=== PATIENT | male | born 1980 | race Caucasian/White ===

== ENCOUNTER 2018-04-06 07:48 | Outpatient (CLI) | payer MEDICARE ==
[2018-04-06] MEDS: methylPREDNISolone 1,000 MG, VIAL MATE ADAPTER 1 EACH in D5W 250 ML IV (08:14)
== END 2018-04-06 09:45 | disposition home or self-care (01) ==
LOC: M INFU 07:48
DX: G35 Multiple sclerosis (principal); Z88.8 Allergy status to other drugs, medicaments and biological substances
CPT/HCPCS: J2930

== ENCOUNTER 2018-04-07 07:43 | Outpatient (CLI) | payer MEDICARE ==
[2018-04-07] MEDS: methylPREDNISolone 1,000 MG, VIAL MATE ADAPTER 1 EACH in NS 250 ML IV (07:48)
== END 2018-04-07 09:15 | disposition home or self-care (01) ==
LOC: M INFU 07:43
DX: G35 Multiple sclerosis (principal); Z79.01 Long term (current) use of anticoagulants; Z79.899 Other long term (current) drug therapy; Z88.8 Allergy status to other drugs, medicaments and biological substances
CPT/HCPCS: J2930

== ENCOUNTER 2018-04-08 07:46 | Outpatient (CLI) | payer MEDICARE ==
[2018-04-08] MEDS: methylPREDNISolone 1,000 MG, VIAL MATE ADAPTER 1 EACH in NS 250 ML IV (08:48)
== END 2018-04-08 09:50 | disposition home or self-care (01) ==
LOC: M INFU 07:46
DX: G35 Multiple sclerosis (principal); Z79.899 Other long term (current) drug therapy; Z88.8 Allergy status to other drugs, medicaments and biological substances
CPT/HCPCS: J2930

== ENCOUNTER 2018-04-22 20:59 | Inpatient (IN) | payer MEDICARE ==
[~2018-04-22] VITALS: Ht 167.6 cm; Wt 110.0 kg
[~2018-04-22 20:59] MED LIST: /PANT40TA OR; /WARF5TA OR; ACET65TA OR; ASPI325T PO; BETASERON; COUM2TAB22 PO; EPIT200T PO; MILKSUS OR; MULT1CHW21 PO; MULTIVIT PO; NICORETTE PO; PERC5TAB8 OR; TEGR200T OR; VITA500C10 PO; ZONI100C2 PO
[2018-04-22 22:25] LABS: BASO % 0.1 % (0.0-1.0); EOS # 0.1 10^3/uL (0.0-0.50); EOS % 0.3 % (0.0-3.0); HEMATOCRIT 16.8 % (42.0-52.0); LYMPH # 1.2 10^3/uL (1.5-4.5); LYMPH % 6.8 % (24.0-44.0); MEAN CORPUSCULAR HEMOGLOBIN 18.5 pg (27.0-33.0); MEAN CORPUSCULAR HGB CONC 26.8 g/dl (32.0-36.5); MEAN CORPUSCULAR VOLUME 69.1 fl (80.0-96.0); MONO # 0.8 10^3/uL (0.0-0.8); MONO % 4.9 % (0.0-5.0); NEUTROPHILS # 14.6 10^3/uL (1.8-7.7); PLATELET COUNT, AUTOMATED 543 10^3/uL (150-450); RED BLOOD COUNT 2.43 10^6/uL (4.30-6.10); WHITE BLOOD COUNT 16.8 10^3/uL (4.0-10.0)
[2018-04-22 22:27] LABS: HEMOGLOBIN 4.5 g/dl (13.5-17.5)
[2018-04-22 22:51] LABS: INR 3.27; PARTIAL THROMBOPLASTIN TIME 41.1 SECONDS (25.4-37.6); PROTHROMBIN TIME 34.1 SECONDS (12.1-14.4)
[2018-04-22 22:59] LABS: ALBUMIN 2.8 GM/DL (3.2-5.2); ALT/SGPT 22 U/L (12-78); BILIRUBIN,DIRECT < 0.1 MG/DL (0.0-0.2); BILIRUBIN,TOTAL 0.2 MG/DL (0.2-1.0); BLOOD UREA NITROGEN 16 MG/DL (7-18); CALCIUM LEVEL 8.5 MG/DL (8.5-10.1); CARBON DIOXIDE LEVEL 27 MEQ/L (21-32); CHLORIDE LEVEL 111 MEQ/L (98-107); CREATININE FOR GFR 0.97 MG/DL (0.70-1.30); GLOMERULAR FILTRATION RATE > 60.0 (>60); GLUCOSE, FASTING 96 MG/DL (70-100); POTASSIUM SERUM 3.4 MEQ/L (3.5-5.1); SODIUM LEVEL 144 MEQ/L (136-145)
--- NOTE | 2018-04-22 23:22 | REPVR ---
EXAM: CT Abdomen and Pelvis Without Intravenous Contrast EXAM DATE/TIME: 04/22/2018 10:02 PM CLINICAL HISTORY: 38 years old, male; Pain and signs and symptoms; Other: Hematuria; Abdominal pain; Localized; Other: Groin pain; Additional info: Groin pain, hematuria, likely stone TECHNIQUE: Axial computed tomography images of the abdomen and pelvis without intravenous contrast. All CT scans at this facility use at least one of these dose optimization techniques: automated exposure control; mA and/or kV adjustment per patient size (includes targeted exams where dose is matched to clinical indication); or iterative reconstruction. Coronal and sagittal reformatted images were created and reviewed. COMPARISON: CR Pelvis, complete 03/25/2014 9:39 AM FINDINGS: Lower thorax: Calcified granulomas in the left lung. ABDOMEN: Liver: Normal. No mass. Gallbladder and bile ducts: Gallstones. Pancreas: Mild atrophy of the pancreas. Spleen: Normal. No splenomegaly. Adrenals: Normal. No mass. Kidneys and ureters: Multiple bilateral renal stones right larger than left; staghorn stone on the right measuring roughly up to 22 mm. On the left largest one is measuring up to 8 mm. No hydroureteronephrosis. Stomach and bowel: Few scattered colonic diverticula without any CT evidence of diverticulitis. Appendix: Normal appendix. PELVIS: Bladder: Unremarkable as visualized. Reproductive: Unremarkable as visualized. ABDOMEN and PELVIS: Intraperitoneal space: Normal. No free air. No significant fluid collection. Bones/joints: Degenerative changes of the spine. Soft tissues: Small fat-containing left inguinal hernia. Vasculature: Normal. No abdominal aortic aneurysm. Lymph nodes: Normal. No enlarged lymph nodes. 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 IMPRESSION: Multiple gallstones. Multiple bilateral renal stones right larger than left; staghorn stone on the right measuring roughly up to 22 mm. On the left largest one is measuring up to 8 mm. No hydroureteronephrosis. Electronically signed by: Janelle Hill On 04/22/2018 23:21:40 PM
[2018-04-22] MEDS ORDERED: WARF4TAB52 PO (23:31)
[2018-04-22] MEDS ORDERED: WARF-60 PO (23:31)
[2018-04-22] MEDS ORDERED: VITA500C10 PO (23:31)
[2018-04-22] MEDS ORDERED: ZONI100C2 PO (23:31)
[2018-04-23] MEDS ORDERED: GI COCKTAIL 50ML BTL(HYOSCYAMINE/MAALOX/LIDOCAINE VISCOUS)(1:3:1) PO ONE (00:45)
[2018-04-23] MEDS ORDERED: WARFARIN SOD 3 MG TAB PO SCH (02:43)
[2018-04-23] MEDS ORDERED: ACETAMINOPHEN TAB 650MG DOSE (2X325MG) PO PRN (02:45)
[2018-04-23] MEDS ORDERED: NICOTINE 14 MG/24 HR TRANSDERMAL TD ONE (02:45)
--- NOTE | 2018-04-23 02:59 | HPEPDOC ---
General Date of Admission Chief Complaint The patient is a 38-year-old male admitted with a reason for visit of Groin Pain. Source: Patient Exam Limitations: No limitations History of Present Illness 38-year-old male presents with groin pain and inability to urinate. Patient has a past medical history of nephrolithiasis, MS, seizure disorder, DVT of the left leg on Coumadin. Patient states he was treated for UTI with Cipro orally, which she completed yesterday. The patient states that today around 2:30 PM he felt immense pressure in his groin. He is been unable to urinate. Tried to go to the bathroom but was unable to. Upon arrival to ED, he was able to urinate 3 times and his pain was relieved. Subsequently, he was found to have a hemoglobin of 4.5. The patient denies symptoms of shortness of breath, but has noticed blood in his urine sporadically while on his treatment with Coumadin. He also states that he has been having black stool for the past 2 years. He complains of constipation and uses the bathroom once every 3 days. He states since his DVT. His legs have been swollen. He can ambulate with a walker but normally uses a scooter. He denies fevers, chills, shortness of breath, abdominal pain, nausea, vomiting, burning on urination. The patient is a smoker of 24 years about one pack per day Home Medications Scheduled Ascorbic Acid (Vitamin C 500 mg) 1 Chw Chw, 1,000 MG PO DAILY, (Reported) Warfarin Sod (Warfarin Sodium) 1 Mg Tab, 2 MG PO QPM, (Reported) TAKES WITH 6MG FOR 8MG TOTAL; TAKES AT 1800 Warfarin Sod (Warfarin Sodium) 6 Mg Tab, 6 MG PO QPM, (Reported) TAKES WITH 2MG FOR 8MG TOTAL; TAKES AT 1800 Zonisamide (Zonisamide) 100 Mg Cap, 100 MG PO QPM, (Reported) TAKES AT 1800 Allergies Coded Allergies: Phenytoin (Verified Allergy, Unknown, 11/10/14) Social History * Smoker: current smoker Review of Systems Constitutional: Denies: Chills, Fever, Night Sweats Eyes: Denies: Pain, Vision change ENT: Denies: Head Aches, Ear Pain, Dysphagia Skin: Reports: Jaundice; Denies: Rash, Lesions, Itching, Breakdown Pulmonary: Denies: Dyspnea, Cough Cardiovascular: Denies: Chest Pain, Palpitations, Orthopnea, Paroxysmal Noc. Dyspnea, Lt Headedness Gastrointestinal: Reports: Constipation, Melena; Denies: Nausea, Vomiting, Abdominal Pain, Diarrhea, Hematochezia Genitourinary: Reports: Hematuria, Retention; Denies: Dysuria, Frequency, Incontinence Hematologic: Denies: Bruising, Bleeding Excessively, Petecchia, Purpura Musculoskeletal: Denies: Neck Pain, Back Pain, Joint Pain, Muscle Pain, Spasms Neurological: Denies: Weakness, Numbness, Change in speech, Confusion, Seizures Psych: Reports: Mood Normal; Denies: Depression, Memory Issues Physical Examination General Exam: Positive: Alert, Cooperative, No Acute Distress Eye Exam: Positive: PERRLA, Conjunctiva & lids normal, EOMI; Negative: Sclera icteric ENT Exam: Positive: Atraumatic, Mucous membr. moist/pink, Pharynx Normal Neck Exam: Positive: Supple; Negative: JVD, thyromegaly Chest Exam: Positive: Clear to auscultation, Normal air movement, Wheezing; Negative: Rales, Rhonchi Heart Exam: Positive: Rate Normal, Regular Rhythm, Normal S1, Normal S2; Negative: Murmurs, Rubs Abdomen Exam: Positive: Normal bowel sounds, Soft; Negative: Tenderness, Hepatospenomegaly Extremity Exam: Positive: Edema, Normal pulses; Negative: Clubbing, Cyanosis, Tenderness Skin Exam: Positive: Nl turgor and temperature; Negative: Breakdown, Lesion Neuro Exam: Positive: Normal Speech, Cranial Nerves 3-12 NL, Reflexes 2+ Psych Exam: Positive: Mental status NL, Mood NL, Oriented x 3 Vital Signs Vital Signs Date Time Temp Pulse Resp B/P (MAP) Pulse Ox O2 Delivery O2 Flow Rate FiO2 04/23/18 01:33 97.4 101 18 135/80 (98) 99 Room Air Laboratory Data Labs 24H Laboratory Tests 2 04/22/18 21:12: Urine Color YELLOW, Urine Appearance HAZY, Urine pH 7.0, Urine Specific [place] 1.009, Urine Protein NEGATIVE, Urine Glucose (UA) NEGATIVE, Urine Ketones NEGATIVE, Urine Blood 2+H, Urine Nitrite NEGATIVE, Urine Bilirubin NEGATIVE, Urine Urobilinogen 0.2, Urine Leukocyte Esterase TRACEH, Urine WBC (Auto) 10H, Urine RBC (Auto) 94H, Urine Hyaline Casts (Auto) 0, Urine Bacteria (Auto) 1+H, Urine Squamous Epithelial Cells 0, Urine Mucus (Auto) SMALL, Urine Sperm (Auto) 04/22/18 21:51: Differential Slide Review Report, Peripheral Blood Smear Path Consult PERIPHERAL SMEAR, Prothrombin Time 34.1H, Prothromb Time International Ratio 3.27, Activated Partial Thromboplast Time 41.1H 04/22/18 22:19: Immature Granulocyte % (Auto) 0.9, White Blood Count 16.8H, Red Blood Count 2.43L, Hemoglobin 4.5*L, Hematocrit 16.8L, Mean Corpuscular Volume 69.1L, Mean Corpuscular Hemoglobin 18.5L, Mean Corpuscular Hemoglobin Concent 26.8L, Red Cell Distribution Width 25.8H, Platelet Count 543H, Neutrophils (%) (Auto) 87.0H, Lymphocytes (%) (Auto) 6.8L, Monocytes (%) (Auto) 4.9, Eosinophils (%) (Auto) 0.3, Basophils (%) (Auto) 0.1, Neutrophils # (Auto) 14.6H, Lymphocytes # (Auto) 1.2L, Monocytes # (Auto) 0.8, Eosinophils # (Auto) 0.1, Basophils # (Auto) 0.0, Nucleated Red Blood Cells % (auto) 0.4H, Anion Gap 6L, Glomerular Filtration Rate > 60.0, Calcium Level 8.5, Aspartate Amino Transf (AST/SGOT) 9, Alanine Aminotransferase (ALT/SGPT) 22, Alkaline Phosphatase 56, Total Bilirubin 0.2, Direct Bilirubin < 0.1, Total Protein 6.0L, Albumin 2.8L, Albumin/Globulin Ratio 0.88L CBC/BMP Laboratory Tests 04/22/18 22:19 Red Blood Count 2.43 L, Mean Corpuscular Volume 69.1 L, Mean Corpuscular Hemoglobin 18.5 L, Mean Corpuscular Hemoglobin Concent 26.8 L, Red Cell Distribution Width 25.8 H, Neutrophils (%) (Auto) 87.0 H, Lymphocytes (%) (Auto) 6.8 L, Monocytes (%) (Auto) 4.9, Eosinophils (%) (Auto) 0.3, Basophils (%) (Auto) 0.1, Neutrophils # (Auto) 14.6 H, Lymphocytes # (Auto) 1.2 L, Monocytes # (Auto) 0.8, Eosinophils # (Auto) 0.1, Basophils # (Auto) 0.0 Microbiology Microbiology 04/22/18 Urine Culture, Received Pending Assessment/Plan 38-year-old male presents with groin pain and inability to urinate. Found to have severe anemia staghorn calculi and bilateral kidneys. Patient has a past medical history of nephrolithiasis, MS, seizure disorder, DVT of the left leg on Coumadin. Severe anemia Patient transfused 2 units of PRBC in the ED Check CBC in the morning Patient is on Coumadin for recent DVT of the left leg in December Mild hematuria on UA Although patient was treated with Cipro prior to admission. His UA is Positive for bacteria and leukocyte esterase, and he has tachycardia, and leukocytosis of 16- meeting criteria for sepsis We'll start ceftriaxone Will continue Coumadin tomorrow night, pending evaluation by urology and GI Consider evaluation for IVC filter Stool for occult blood Anemia less likely hemolysis bilirubin is not elevated. Follow-up peripheral blood smear Patient is a smoker. Nicotine patch ordered counseling done Physical therapy evaluation. Gait stability and strengthening Fall precautions Plan / VTE VTE Prophylaxis Ordered?: No VTE Exclusion Mechanical Proph: Bello Lower Ex DVT IFEOMA GRUBER MD Apr 23, 2018 02:54
[2018-04-23] MEDS ORDERED: cefTRIAXone SOD 1 GM in D5W MINI-BAG PLUS 50 ML IV SCH (03:00)
[2018-04-23 04:00] VITALS: BP 134/80
[2018-04-23] MEDS: ZONISAMIDE 100 MG CAP (ZONEGRAN) PO SCH ×2 (05:53→18:10)
[2018-04-23 07:02] LABS: HEMATOCRIT 19.5 % (42.0-52.0); MEAN CORPUSCULAR HGB CONC 29.7 g/dl (32.0-36.5); MEAN CORPUSCULAR VOLUME 73.9 fl (80.0-96.0); PLATELET COUNT, AUTOMATED 445 10^3/uL (150-450); RED BLOOD COUNT 2.64 10^6/uL (4.30-6.10); WHITE BLOOD COUNT 9.7 10^3/uL (4.0-10.0)
[2018-04-23 07:24] LABS: HEMOGLOBIN 5.8 g/dl (13.5-17.5)
[2018-04-23 07:26] LABS: BLOOD UREA NITROGEN 17 MG/DL (7-18); CALCIUM LEVEL 7.7 MG/DL (8.5-10.1); CARBON DIOXIDE LEVEL 25 MEQ/L (21-32); CHLORIDE LEVEL 113 MEQ/L (98-107); CREATININE FOR GFR 0.95 MG/DL (0.70-1.30); GLOMERULAR FILTRATION RATE > 60.0 (>60); GLUCOSE, FASTING 79 MG/DL (70-100); POTASSIUM SERUM 3.5 MEQ/L (3.5-5.1); SODIUM LEVEL 144 MEQ/L (136-145)
[2018-04-23] MEDS ORDERED: POTASSIUM CHLORIDE 10 MEQ SR TABLET PO ONE (07:45)
[2018-04-23] MEDS: PANTOPRAZOLE 40MG INJ (PROTONIX) (C9113) IV SCH ×2 (07:52→20:47)
[2018-04-23 08:16] LABS: PERCENT SATURATION 3.6 % (19.7-50.0)
[2018-04-23 09:00] VITALS: BP 127/61
[2018-04-23] MEDS ORDERED: ASCORBIC ACID 500 MG TAB PO SCH (09:00)
[2018-04-23] MEDS ORDERED: SENOKOT S TAB PO SCH (09:00)
--- NOTE | 2018-04-23 09:02 | REP ---
Duplex extremity venous ultrasound: Bilateral lower extremity. History: History of recent DVT below the knee on the left. Earlier this year. Patient on blood thinners with edema. Question DVT. Findings: Image quality is inhibited some degree by patient body habitus. The deep veins are anechoic and fully compressible from the groin to the popliteal fossa in the left and right lower extremity. Color flow imaging is homogeneous. Spectral Doppler interrogation demonstrates intact respiratory variation in flow and normal manual augmentation of flow. There is no evidence of deep vein thrombosis. Impression: Negative bilateral lower extremity duplex venous ultrasound. No evidence of deep vein thrombosis. Electronically Signed by Brandon Andres MD 04/23/2018 08:53 A
[2018-04-23 11:49] LABS: FOLATE 6.5 NG/ML (>5.4)
--- NOTE | 2018-04-23 11:55 | IPNPDOC ---
Subjective Date Seen The patient was seen on 04/23/18. Subjective Chief Complaint/HPI 38 yo male with PMH of MS, unspecified bone neoplasm, hematuria, nephrolithiasis s/p shock wave and unspecified percutaneous procedure, seizure d/o, and DVT in December 2017 on Coumadin at home presents at the hospital d/t inability to void in addition to groin pain. Events since last encounter Patient is laying on the bed comfortably. Denies any chest pain, SOB, dizziness, lightheadedness, nausea, or vomiting, or dysuria. He said that he has occasional leakage of urine along with urinary urgency and frequency. Patient states that he has good bowel movement control; denies diarrhea or hematochezia. Patient states that he has been having black stool since he is about 8 years old. Denies family hx of anemia, and no family history of blood disorder was reported. 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 Patient states that his hematuria has improved, but it is looks pink; denies any obvious blood streaks in urine. Blood consent was obtained in ER before his blood transfusion in ER, currently there is no blood consent form in chart. Duplex lower extremity US was neg for DVT. General: Denies: Chills Constitutional: Denies: Chills, Fever ENT: Denies: Head Aches Skin: Denies: Bruising Pulmonary: Reports: Cough (baseline); Denies: Dyspnea, Pleuritic Chest Pain Cardiovascular: Denies: Chest Pain, Palpitations, Lt Headedness Genitourinary: Reports: Frequency, Incontinence (urine leakage, may happen without sneezing/coughing), Other Symptoms (urgency); Denies: Dysuria, Retention Hematologic: Denies: Bruising, Bleeding Excessively Neurological: Reports: Weakness, Incoordination (baseline from MS); Denies: Numbness, Change in speech Objective Physical Examination General Exam: Positive: Alert, Cooperative, No Acute Distress Eye Exam: Positive: PERRLA, Conjunctiva & lids normal, EOMI; Negative: Sclera icteric ENT Exam: Positive: Atraumatic, Mucous membr. moist/pink, Pharynx Normal Neck Exam: Positive: Supple; Negative: JVD, thyromegaly Chest Exam: Positive: Clear to auscultation, Normal air movement, Wheezing; Negative: Rales, Rhonchi Heart Exam: Positive: Rate Normal, Regular Rhythm, Normal S1, Normal S2; Negative: Murmurs, Rubs Abdomen Exam: Positive: Normal bowel sounds, Soft; Negative: Tenderness, Hepatospenomegaly Extremity Exam: Positive: Edema, Normal pulses; Negative: Clubbing, Cyanosis, Tenderness Skin Exam: Positive: Nl turgor and temperature; Negative: Breakdown, Lesion Neuro Exam: Positive: Normal Speech, Cranial Nerves 3-12 NL, Reflexes 2+ Psych Exam: Positive: Mental status NL, Mood NL, Oriented x 3 Assessment /Plan Assessment 1. Isolated severe Anemia 2/2 iron deficiency anemia vs hematuria -microcytic anemia with high RDW; low iron and low ferritin -vitals stable roughly stable since admission. S/p 2 units PRBC in ED. 2 more units ordered for today. Transfusion consent form re-obtained today -Neg stool occult blood -F/u with CBC in AM and H&H in PM. Tele monitor. -home meds Coumadin for recent DVT in 12/2017 was held. INR>3. F/u with PT/INR. 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 Treated with Cipro as outpatient prior to admission. PMH of multiple UTI and nephrolithiasis -urology consulted and determines no intervention from urology at this time. If creatinine increases may contact urology again -Surgery consulted, planned upper endoscopy and colonoscopy. Will repeat stool occult blood test again -On PO ferrous sulfate 2. Sepsis 2/2 to UTI, resolved -initially presented with leukocytosis, tachycardia, and source of infection. Leukocytosis resolved. -Pos for urinary urgency and frequency. Mild hematuria -On IV Ceftriaxone. UA pos for UTI. Urine Cx pending. May change antibiotics based on urine cx result. -Continue to f/u with vitals and CBC 3. Recent DVT -Wafarin d/c as patient's severely anemic with hematuria -Dr. Esteves consulted. IVC filter placement. 4. Urinary retention, resolved -patient has been able to urinate since admission -urology following -On Flomax 5. Urinary leakage, likely 2/2 multiple sclerosis vs UTI -Continue to monitor -urology following -Recommend f/u outpatient 6. Multiple sclerosis -Patient has imbalance and requires walker/power chair at baseline -PT/OT ordered -Fall precaution. OOB to chair w/ assist. Activity per PT/OT 7. Hx of seizure -Continue home med Zonisamide -seizure precaution ordered DVT prophylaxis. TEDS. planned IVC filter placement Diet. Clear liquid diet. Plan/VTE VTE Prophylaxis Ordered?: Yes (TEDS) VTE Exclusion Mechanical Proph: Bello Lower Ex DVT VS, I&O, 24H, Fishbone Vital Signs/I&O Vital Signs Date Time Temp Pulse Resp B/P (MAP) Pulse Ox O2 Delivery O2 Flow Rate FiO2 04/23/18 09:00 98.7 102 18 127/61 (83) 97 Room Air I&O- Last 24 Hours up to 6 AM 04/23/18 05:59 Intake Total 450 ml Balance 450 ml Laboratory Data 24H LABS Laboratory Tests 2 04/22/18 21:12: Urine Color YELLOW, Urine Appearance HAZY, Urine pH 7.0, Urine Specific [place] 1.009, Urine Protein NEGATIVE, Urine Glucose (UA) NEGATIVE, Urine Ketones NEGATIVE, Urine Blood 2+H, Urine Nitrite NEGATIVE, Urine Bilirubin NEGATIVE, Urine Urobilinogen 0.2, Urine Leukocyte Esterase TRACEH, Urine WBC (Auto) 10H, Urine RBC (Auto) 94H, Urine Hyaline Casts (Auto) 0, Urine Bacteria (Auto) 1+H, Urine Squamous Epithelial Cells 0, Urine Mucus (Auto) SMALL, Urine Sperm (Auto) 04/22/18 21:51: Differential Slide Review Report, Peripheral Blood Smear Path Consult PERIPHERAL SMEAR, Prothrombin Time 34.1H, Prothromb Time International Ratio 3.27, Activated Partial Thromboplast Time 41.1H 04/22/18 22:19: Immature Granulocyte % (Auto) 0.9, White Blood Count 16.8H, Red Blood Count 2.43L, Hemoglobin 4.5*L, Hematocrit 16.8L, Mean Corpuscular Volume 69.1L, Mean Corpuscular Hemoglobin 18.5L, Mean Corpuscular Hemoglobin Concent 26.8L, Red Cell Distribution Width 25.8H, Platelet Count 543H, Neutrophils (%) (Auto) 87.0H, Lymphocytes (%) (Auto) 6.8L, Monocytes (%) (Auto) 4.9, Eosinophils (%) (Auto) 0.3, Basophils (%) (Auto) 0.1, Neutrophils # (Auto) 14.6H, Lymphocytes # (Auto) 1.2L, Monocytes # (Auto) 0.8, Eosinophils # (Auto) 0.1, Basophils # (Auto) 0.0, Nucleated Red Blood Cells % (auto) 0.4H, Anion Gap 6L, Glomerular Filtration Rate > 60.0, Calcium Level 8.5, Aspartate Amino Transf (AST/SGOT) 9, Alanine Aminotransferase (ALT/SGPT) 22, Alkaline Phosphatase 56, Total Bilirubin 0.2, Direct Bilirubin < 0.1, Total Protein 6.0L, Albumin 2.8L, Albumin/Globulin Ratio 0.88L 04/23/18 06:38: Reticulocyte # (auto) 59.5, Percent Reticulocyte Count 2.3H, Reticulocyte Hemoglobin Equivalent 15.3L 04/23/18 06:43: Nucleated Red Blood Cells % (auto) 0.8H, Anion Gap 6L, Glomerular Filtration Rate > 60.0, Blood Urea Nitrogen 17, Creatinine 0.95, Sodium Level 144, Potassium Level 3.5, Chloride Level 113H, Carbon Dioxide Level 25, Calcium Level 7.7L 04/23/18 07:26: Iron Level 14L, Total Iron Binding Capacity 386, Transferrin % Saturation 3.6L, Ferritin 3L CBC/BMP Laboratory Tests 04/22/18 22:19 Red Blood Count 2.43 L, Mean Corpuscular Volume 69.1 L, Mean Corpuscular Hemoglobin 18.5 L, Mean Corpuscular Hemoglobin Concent 26.8 L, Red Cell Distribution Width 25.8 H, Neutrophils (%) (Auto) 87.0 H, Lymphocytes (%) (Auto) 6.8 L, Monocytes (%) (Auto) 4.9, Eosinophils (%) (Auto) 0.3, Basophils (%) (Auto) 0.1, Neutrophils # (Auto) 14.6 H, Lymphocytes # (Auto) 1.2 L, Monocytes # (Auto) 0.8, Eosinophils # (Auto) 0.1, Basophils # (Auto) 0.0 04/23/18 06:43 Red Blood Count 2.64 L, Mean Corpuscular Volume 73.9 L, Mean Corpuscular Hem oglobin 22.0 L, Mean Corpuscular Hemoglobin Concent 29.7 L, Red Cell Distribution Width 27.0 H, Calcium Level 7.7 L Microbiology Microbiology 04/23/18 Stool Occult Blood (AKOSUA) - Final, Complete 04/22/18 Urine Culture, Received Pending GME ATTESTATION GME ATTESTATION My faculty preceptor for this patient encounter was physically present during the encounter and was fully available. All aspects of the patient interview, examination, medical decision making process, and medical care plan development were reviewed and approved by the faculty preceptor. The faculty preceptor is aware and concurs with the plan as stated in the body of this note and will attest to such by his/her cosignature. ATTENDING NOTE I have both independently examined this patient as well as reviewed the note I have discussed in detail the findings and plan of treatment as documented in the note. I will continue to follow the patient and offer further guidance to the patients care as necessary during this hospital stay. CATE García MD, DO Apr 23, 2018 11:55 CORNELL MARIN MD Apr 24, 2018 10:59
[2018-04-23] MEDS ORDERED: ISOVUE-300 61% 50ML VIAL (Q9967) As Ordered ONE (12:52)
[2018-04-23] MEDS ORDERED: LIDOCAINE 2% MDV 20 ML VIAL As Ordered ONE (12:52)
[2018-04-23 15:16] LABS: HEMATOCRIT 24.2 % (42.0-52.0); HEMOGLOBIN 7.2 g/dl (13.5-17.5)
[2018-04-23] MEDS: ASCORBIC ACID 500 MG TAB PO SCH ×2 (15:35→20:49)
[2018-04-23] MEDS: FERROUS SULFATE 325MG TAB PO SCH ×2 (15:36→20:49)
[2018-04-23 16:00] VITALS: BP 130/78
[2018-04-23 20:00] VITALS: BP 131/71
[2018-04-23] MEDS: SENOKOT S TAB PO SCH (20:49)
[2018-04-23] MEDS: TAMSULOSIN 0.4 MG CAP PO SCH (20:49)
[2018-04-24] VITALS (7 sets, daily range): BP systolic 120–150; BP diastolic 63–91
[2018-04-24] MEDS: cefTRIAXone SOD 2 GM in D5W MINI-BAG PLUS 50 ML IV SCH (03:37)
[2018-04-24 05:40] LABS: HEMATOCRIT 28.3 % (42.0-52.0); HEMOGLOBIN 8.8 g/dl (13.5-17.5); MEAN CORPUSCULAR HEMOGLOBIN 23.7 pg (27.0-33.0); MEAN CORPUSCULAR HGB CONC 31.1 g/dl (32.0-36.5); MEAN CORPUSCULAR VOLUME 76.1 fl (80.0-96.0); PLATELET COUNT, AUTOMATED 448 10^3/uL (150-450); RED BLOOD COUNT 3.72 10^6/uL (4.30-6.10); WHITE BLOOD COUNT 10.2 10^3/uL (4.0-10.0)
[2018-04-24 05:55] LABS: INR 1.98; PROTHROMBIN TIME 22.9 SECONDS (12.1-14.4)
[2018-04-24 05:59] LABS: BLOOD UREA NITROGEN 10 MG/DL (7-18); CALCIUM LEVEL 8.6 MG/DL (8.5-10.1); CARBON DIOXIDE LEVEL 24 MEQ/L (21-32); CHLORIDE LEVEL 111 MEQ/L (98-107); CREATININE FOR GFR 0.83 MG/DL (0.70-1.30); GLOMERULAR FILTRATION RATE > 60.0 (>60); GLUCOSE, FASTING 79 MG/DL (70-100); POTASSIUM SERUM 3.6 MEQ/L (3.5-5.1); SODIUM LEVEL 142 MEQ/L (136-145)
[2018-04-24] MEDS ORDERED: GOLYTELY SOLN 4000 ML BTL PO ONE (06:00)
[2018-04-24] MEDS ORDERED: POTASSIUM CHLORIDE 10 MEQ SR TABLET PO ONE (08:00)
[2018-04-24] MEDS: PANTOPRAZOLE 40MG INJ (PROTONIX) (C9113) IV SCH ×2 (08:48→20:46)
[2018-04-24] MEDS: ASCORBIC ACID 500 MG TAB PO SCH ×3 (08:48→20:46)
[2018-04-24] MEDS: FERROUS SULFATE 325MG TAB PO SCH ×3 (08:48→20:46)
[2018-04-24] MEDS: SENOKOT S TAB PO SCH ×2 (08:48→20:46)
--- NOTE | 2018-04-24 10:56 | IPNPDOC ---
Subjective Date Seen The patient was seen on 04/24/18. Subjective Chief Complaint/HPI 38 yo male with PMH of MS, unspecified bone neoplasm, hematuria, nephrolithiasis s/p shock wave and unspecified percutaneous procedure, seizure d/o, and DVT in December 2017 on Coumadin at home presents at the hospital d/t inability to void in addition to groin pain. Events since last encounter Patient was on the commode at the time of the examination. 2 nurses were in the exam room at the time of the examination. Patient states that he is feelign well. It was reported that his urine color has cleared up. Patient denies any dizziness, lightheadedness, chest pain, palpitation, or SOB. He is s/p IVC filter placement. Patient was minimally hypokalemia, and K 40 meq was repleted. General: Denies: Chills Constitutional: Denies: Chills, Fever Pulmonary: Denies: Dyspnea, Pleuritic Chest Pain Cardiovascular: Denies: Chest Pain, Palpitations, Lt Headedness Gastrointestinal: Denies: Nausea, Vomiting, Abdominal Pain Genitourinary: Denies: Hematuria Neurological: Reports: Weakness (lower extremity weakness), Other Symptoms (imbalance); Denies: Numbness Objective Physical Examination General Exam: Positive: Alert, Cooperative, No Acute Distress Eye Exam: Positive: PERRLA, Conjunctiva & lids normal; Negative: Sclera icteric ENT Exam: Positive: Atraumatic, Mucous membr. moist/pink Neck Exam: Positive: Supple; Negative: JVD, thyromegaly Chest Exam: Positive: Clear to auscultation, Normal air movement; Negative: Rales, Rhonchi, Wheezing Heart Exam: Positive: Rate Normal, Regular Rhythm, Normal S1, Normal S2; Negative: Murmurs, Rubs Abdomen Exam: Positive: Normal bowel sounds, Soft; Negative: Tenderness, Hepatospenomegaly Extremity Exam: Positive: Normal pulses; Negative: Clubbing, Cyanosis Skin Exam: Positive: Nl turgor and temperature; Negative: Breakdown, Lesion Neuro Exam: Positive: Normal Speech, Sensation Intact, Reflexes 2+; Negative: Strength at 5/5 X4 ext (+2 in left lower extremity. +4 in right lower extremity. +5 in bilateral upper extremities.) Psych Exam: Positive: Mental status NL, Mood NL, Oriented x 3 Assessment /Plan Assessment 1. Isolated severe Anemia 2/2 iron deficiency anemia, 2/2 hematuria from nephrolithiasis VS GI loss; improving -microcytic anemia with high RDW; low iron and low ferritin -vitals stable roughly stable since admission. S/p 4 units PRBC transfusion. Transfusion consent form re-obtained 04/23 -First stool occult blood neg. Repeat stool occult blood test positive. -F/u with CBC in AM and H&H in PM. Tele monitor. May switch to CBC in the AM only starting 04/23 if H&H roughly stable. -home meds Coumadin for recent DVT was d/c. s/p IVC filter placement. 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 PMH of multiple UTI and nephrolithiasis. Gross hematuria resolved. -urology consulted and determines no intervention from urology at this time. If creatinine increases may contact urology again -Surgery consulted, planned upper endoscopy and colonoscopy. NPO 8hrs before scope. -On PO ferrous sulfate 2. Sepsis 2/2 to questionable UTI, improving -initially presented with leukocytosis, tachycardia, and source of infection. Currently without tachycardia -Pos for urinary urgency and frequency. Mild hematuria present in UA. Gross hematuria resolved. -On IV Ceftriaxone. Treated with Cipro as outpatient prior to admission. UA pos for UTI. Urine Cx no growth. -Continue to f/u with vitals and CBC 3. Recent DVT -Wafarin d/c as patient's severely anemic with hematuria -Dr. Esteves consulted. IVC filter placement and TEDS. D/C Warfarin as pos for hematuria and scheduled endoscopes. 4. Urinary retention, resolved -patient has been able to urinate since admission -urology following -On Flomax 5. Urinary leakage, likely 2/2 multiple sclerosis vs UTI -Continue to monitor -urology following -Recommend f/u outpatient 6. Multiple sclerosis -Patient has imbalance and requires walker/power chair at baseline -PT/OT ordered -Fall precaution. OOB to chair w/ assist. Activity per PT/OT 7. Hx of seizure -Continue home med Zonisamide -seizure precaution ordered DVT prophylaxis. TEDS. planned IVC filter placement Diet. Clear liquid diet. NPO start 04/24/18 dinner for procedure Plan/VTE VTE Prophylaxis Ordered?: Yes (IVC filter placed) VTE Exclusion Mechanical Proph: Other (prior DVT. IVC filter) VS, I&O, 24H, Fishbone Vital Signs/I&O Vital Signs Date Time Temp Pulse Resp B/P (MAP) Pulse Ox O2 Delivery O2 Flow Rate FiO2 04/24/18 08:00 96.0 80 18 141/91 (108) 96 Room Air I&O- Last 24 Hours up to 6 AM 04/24/18 06:00 Intake Total 1507 ml Output Total 3400 ml Balance -1893 ml Laboratory Data 24H LABS Laboratory Tests 2 04/24/18 05:16: Nucleated Red Blood Cells % (auto) 0.3H, Prothrombin Time 22.9H, Prothromb Time International Ratio 1.98, Anion Gap 7L, Glomerular Filtration Rate > 60.0, Blood Urea Nitrogen 10, Creatinine 0.83, Sodium Level 142, Potassium Level 3.6, Chloride Level 111H, Carbon Dioxide Level 24, Calcium Level 8.6 CBC/BMP Laboratory Tests 04/23/18 14:52 04/24/18 05:16 Red Blood Count 3.72 L, Mean Corpuscular Volume 76.1 L, Mean Corpuscular Hemoglobin 23.7 L, Mean Corpuscular Hemoglobin Concent 31.1 L, Red Cell Distribution Width 24.8 H, Calcium Level 8.6 Microbiology Microbiology 04/23/18 Stool Occult Blood (AKOSUA) - Final, Complete 04/22/18 Urine Culture - Final, Complete GME ATTESTATION GME ATTESTATION My faculty preceptor for this patient encounter was physically present during the encounter and was fully available. All aspects of the patient interview, examination, medical decision making process, and medical care plan development were reviewed and approved by the faculty preceptor. The faculty preceptor is aware and concurs with the plan as stated in the body of this note and will attest to such by his/her cosignature. ATTENDING NOTE I have both independently examined this patient as well as reviewed the note I have discussed in detail the findings and plan of treatment as documented in the note. I will continue to follow the patient and offer further guidance to the patients care as necessary during this hospital stay. CATE García MD, DO Apr 24, 2018 10:56 CORNELL MARIN MD Apr 25, 2018 12:09
--- NOTE | 2018-04-24 11:08 | IPNPDOC ---
Text Note Date of Service The patient was seen on 04/24/18. NOTE No acute events overnight. He denies any abd pains, nausea, emesis, or bowel movements. He is already started on his bowel prep, and the plan is for EGD and colonoscopy tomorrow AM. VSSAF NAD abd - soft, nt, nd A) 38y/o male with MS, and anemia likely due to GI bleed vs. nephrolithiasis, or both nephrolithiasis P) clq diet bowel prep today NPO after midnight OR for EGD and colonoscopy in am Jonnathan Diaz DO VS,Fishbone, I+O VS, Fishbone, I+O Laboratory Tests 04/23/18 14:52 04/24/18 05:16 Red Blood Count 3.72 L, Mean Corpuscular Volume 76.1 L, Mean Corpuscular Hemoglobin 23.7 L, Mean Corpuscular Hemoglobin Concent 31.1 L, Red Cell Distribution Width 24.8 H, Calcium Level 8.6 Vital Signs Date Time Temp Pulse Resp B/P (MAP) Pulse Ox O2 Delivery O2 Flow Rate FiO2 04/24/18 08:00 96.0 80 18 141/91 (108) 96 Room Air I&O- Last 24 Hours up to 6 AM 04/24/18 05:59 Intake Total 1447 ml Output Total 3050 ml Balance -1603 ml BANDAR DIAZ DO Apr 24, 2018 11:08
[2018-04-24] MEDS: ZONISAMIDE 100 MG CAP (ZONEGRAN) PO SCH (17:06)
--- NOTE | 2018-04-24 18:46 | CR.PDOC ---
General Date of Consultation: Apr 23, 2018 Referring Provider: CORNELL MARIN MD Primary Care Physician: CORNELL MARIN MD Attending Physician: CORNELL MARIN MD Consultation REASON FOR CONSULTATION/CHIEF COMPLAINT: staghorn calculus; bilateral renal stones. HISTORY OF PRESENT ILLNESS: 38yo male present to ER with his second episode of acute on chronic severe anemia. He has . ALLERGIES: Please see below. HOME MEDICATIONS: Please see below. PAST MEDICAL HISTORY: 1. Multiple sclerosis . 2. Recurrent staghorn calculi bilaterally, renal PAST SURGICAL HISTORY: 1. Right femur fracture repair 2. Several, renal surgeries for renal calculi. FAMILY HISTORY: BROTHER HEALTHY SOCIAL HISTORY: relevant social factors: Before his diagnosis of MS friends thought that he was walking drunk all the time. LIVES WITH REVIEW OF SYSTEMS: CONSTITUTIONAL: Friendly, cooperative . HEENT: No erythema, no exudate. CARDIOVASCULAR: Anemia, acute on chronic. RESPIRATORY: No COPD no asthma. GENITOURINARY: Bilateral renal calculi/staghorn . MUSCULOSKELETAL: Poorly ambulatory, right lower extremity injury and repair. GASTROINTESTINAL:, Black tarry stool. SKIN: Right lower extremity scar, problems with his hair or nails. NEUROLOGICAL: NONE. PSYCHIATRIC: Affect normal . ENDOCRINE: Obese . HEMATOLOGIC/LYMPHATIC: Bleeding dyscrasia . ALLERGIC/IMMUNOLOGIC: None . PHYSICAL EXAMINATION: VPHYSICAL EXAMINATION: VITAL SIGNS: Please see below. GENERAL: COOPERATIVE, SITTING IN CHAIR HEENT: NO EXUDATE NO ERYTHEMA CARDIOVASCULAR: RRR, NO CYANOSIS. RESPIRATORY: GOOD EXCURSION NO WHEEZES NO STRIDOR. ABDOMINAL: SOFT NON TENDER NON DISTENDED EXTREMITIES: OLD SCAR DOWN THE RIGHT LATERAL NEUROLOGICAL: ALERT AND ORIENT X3 PSYCHOLOGICAL: MOOD AND AFFECT NORMAL LABORATORY DATA: Please see below. ASSESSMENT/PLAN: 1. STAGHORN CALCULI. 2. KIDNEY STONE 3. NORMAL WBC 4. NORMAL CR 5. BEING W/U FOR SEVERE ANEMIA FU WITH DR. KEBEDE AN OUTPATIENT TO MANAGE STONES PT IS NOT SEPTIC AND DENIES GROSS HEMATURIA-STATES URINE IS YELLOW THROUGH OUT THE LAST [address] KEBEDE/UROLOGY. Vital Signs/I&O Vital Signs Date Time Temp Pulse Resp B/P (MAP) Pulse Ox O2 Delivery O2 Flow Rate FiO2 04/23/18 09:00 98.7 102 18 127/61 (83) 97 Room Air I&O- Last 24 Hours up to 6 AM 04/23/18 06:00 Intake Total 450 ml Balance 450 ml Laboratory Data Labs 24H Laboratory Tests 2 04/22/18 21:12: Urine Color YELLOW, Urine Appearance HAZY, Urine pH 7.0, Urine Specific [place] 1.009, Urine Protein NEGATIVE, Urine Glucose (UA) NEGATIVE, Urine Ketones NEGATIVE, Urine Blood 2+H, Urine Nitrite NEGATIVE, Urine Bilirubin NEGATIVE, Urine Urobilinogen 0.2, Urine Leukocyte Esterase TRACEH, Urine WBC (Auto) 10H, Urine RBC (Auto) 94H, Urine Hyaline Casts (Auto) 0, Urine Bacteria (Auto) 1+H, Urine Squamous Epithelial Cells 0, Urine Mucus (Auto) SMALL, Urine Sperm (Auto) 04/22/18 21:51: Differential Slide Review Report, Peripheral Blood Smear Path Consult PERIPHERAL SMEAR, Prothrombin Time 34.1H, Prothromb Time International Ratio 3.27, Activated Partial Thromboplast Time 41.1H 04/22/18 22:19: Immature Granulocyte % (Auto) 0.9, White Blood Count 16.8H, Red Blood Count 2.43L, Hemoglobin 4.5*L, Hematocrit 16.8L, Mean Corpuscular Volume 69.1L, Mean Corpuscular Hemoglobin 18.5L, Mean Corpuscular Hemoglobin Concent 26.8L, Red Cell Distribution Width 25.8H, Platelet Count 543H, Neutrophils (%) (Auto) 87.0H, Lymphocytes (%) (Auto) 6.8L, Monocytes (%) (Auto) 4.9, Eosinophils (%) (Auto) 0.3, Basophils (%) (Auto) 0.1, Neutrophils # (Auto) 14.6H, Lymphocytes # (Auto) 1.2L, Monocytes # (Auto) 0.8, Eosinophils # (Auto) 0.1, Basophils # (Auto) 0.0, Nucleated Red Blood Cells % (auto) 0.4H, Anion Gap 6L, Glomerular Filtration Rate > 60.0, Calcium Level 8.5, Aspartate Amino Transf (AST/SGOT) 9, Alanine Aminotransferase (ALT/SGPT) 22, Alkaline Phosphatase 56, Total Bilirubin 0.2, Direct Bilirubin < 0.1, Total Protein 6.0L, Albumin 2.8L, Albumin/Globulin Ratio 0.88L 04/23/18 06:38: Reticulocyte # (auto) 59.5, Percent Reticulocyte Count 2.3H, Reticulocyte Hemoglobin Equivalent 15.3L 04/23/18 06:43: Nucleated Red Blood Cells % (auto) 0.8H, Anion Gap 6L, Glomerular Filtration Rate > 60.0, Blood Urea Nitrogen 17, Creatinine 0.95, Sodium Level 144, Potassium Level 3.5, Chloride Level 113H, Carbon Dioxide Level 25, Calcium Level 7.7L 04/23/18 07:26: Iron Level 14L, Total Iron Binding Capacity 386, Transferrin % Saturation 3.6L, Ferritin 3L, Vitamin B12 Level 210L, Folate 6.5 CBC/BMP Laboratory Tests 04/22/18 22:19 Red Blood Count 2.43 L, Mean Corpuscular Volume 69.1 L, Mean Corpuscular Hemoglobin 18.5 L, Mean Corpuscular Hemoglobin Concent 26.8 L, Red Cell Distribution Width 25.8 H, Neutrophils (%) (Auto) 87.0 H, Lymphocytes (%) (Auto) 6.8 L, Monocytes (%) (Auto) 4.9, Eosinophils (%) (Auto) 0.3, Basophils (%) (Auto) 0.1, Neutrophils # (Auto) 14.6 H, Lymphocytes # (Auto) 1.2 L, Monocytes # (Auto) 0.8, Eosinophils # (Auto) 0.1, Basophils # (Auto) 0.0 04/23/18 06:43 Red Blood Count 2.64 L, Mean Corpuscular Volume 73.9 L, Mean Corpuscular Hemoglobin 22.0 L, Mean Corpuscular Hemoglobin Concent 29.7 L, Red Cell Distribution Width 27.0 H, Calcium Level 7.7 L Microbiology Microbiology 04/23/18 Stool Occult Blood (AKOSUA) - Final, Complete 04/22/18 Urine Culture - Final, Complete Allergies Coded Allergies: Phenytoin (Verified Allergy, Unknown, 11/10/14) Home Medications Scheduled Ascorbic Acid (Vitamin C 500 mg) 1 Chw Chw, 1,000 MG PO DAILY, (Reported) Warfarin Sod (Warfarin Sodium) 1 Mg Tab, 2 MG PO QPM, (Reported) TAKES WITH 6MG FOR 8MG TOTAL; TAKES AT 1800 Warfarin Sod (Warfarin Sodium) 6 Mg Tab, 6 MG PO QPM, (Reported) TAKES WITH 2MG FOR 8MG TOTAL; TAKES AT 1800 Zonisamide (Zonisamide) 100 Mg Cap, 100 MG PO QPM, (Reported) TAKES AT 1800 Shun Griffin MD Apr 23, 2018 14:36
--- NOTE | 2018-04-24 18:48 | IPNPDOC ---
Date Seen The patient was seen on 04/24/18. Progress Note SUBJECTIVE: Patient is a 38Y WHITE MALE WITH OTHER COMORBIDITIES AND REASON FOR ADMISSION; UROLOGY CONSULTED FOR STAGHORN CALCULI AND OTHER KIDNEY SMALLER KIDNEY STONES BILATERALLY. PT HAS A NORMAL CREATININE AND NORMAL WBC, BUT IS ADMITTED FOR SEVERE ANEMIA THAT IS GETTING A WORK UP CURRENTLY. OBJECTIVE PHYSICAL EXAMINATION: VITAL SIGNS: Please see below. GENERAL: COOPERATIVE, SITTING IN CHAIR HEENT: NO EXUDATE NO ERYTHEMA CARDIOVASCULAR: RRR, NO CYANOSIS. RESPIRATORY: GOOD EXCURSION NO WHEEZES NO STRIDOR. ABDOMINAL: SOFT NON TENDER NON DISTENDED EXTREMITIES: OLD SCAR DOWN THE RIGHT LATERAL NEUROLOGICAL: PSYCHOLOGICAL: LABORATORY DATA, IMAGING STUDIES, MICROBIOLOGY: Please see below. PHYSICAL EXAMINATION: VITAL SIGNS: Please see below. GENERAL: COOPERATIVE, SITTING IN CHAIR HEENT: NO EXUDATE NO ERYTHEMA CARDIOVASCULAR: RRR, NO CYANOSIS. RESPIRATORY: GOOD EXCURSION NO WHEEZES NO STRIDOR. ABDOMINAL: SOFT NON TENDER NON DISTENDED EXTREMITIES: OLD SCAR DOWN THE RIGHT LATERAL NEUROLOGICAL: ALERT AND ORIENT X3 PSYCHOLOGICAL: MOOD AND AFFECT NORMAL LABORATORY DATA: Please see below. ASSESSMENT/PLAN: 1. STAGHORN CALCULI. 2. KIDNEY STONE 3. NORMAL WBC 4. NORMAL CR 5. BEING W/U FOR SEVERE ANEMIA FU WITH DR. KEBEDE AN OUTPATIENT TO MANAGE STONES PT IS NOT SEPTIC AND DENIES GROSS HEMATURIA-STATES URINE IS YELLOW THROUGH OUT THE LAST [address] KEBEDE/UROLOGY. DISPOSITION: CONTINUED INPATIENT STAY UNTIL ANEMIA ETIOLOGY RESOLVED. VS, I&O, 24H, Fishbone Vital Signs/I&O Vital Signs Date Time Temp Pulse Resp B/P (MAP) Pulse Ox O2 Delivery O2 Flow Rate FiO2 04/24/18 08:00 96.0 80 18 141/91 (108) 96 Room Air I&O- Last 24 Hours up to 6 AM 04/24/18 06:00 Intake Total 1507 ml Output Total 3400 ml Balance -1893 ml Laboratory Data 24H LABS Laboratory Tests 2 04/24/18 05:16: Nucleated Red Blood Cells % (auto) 0.3H, Prothrombin Time 22.9H, Prothromb Time International Ratio 1.98, Anion Gap 7L, Glomerular Filtration Rate > 60.0, Blood Urea Nitrogen 10, Creatinine 0.83, Sodium Level 142, Potassium Level 3.6, Chloride Level 111H, Carbon Dioxide Level 24, Calcium Level 8.6 CBC/BMP Laboratory Tests 04/24/18 05:16 Red Blood Count 3.72 L, Mean Corpuscular Volume 76.1 L, Mean Corpuscular Hemoglobin 23.7 L, Mean Corpuscular Hemoglobin Concent 31.1 L, Red Cell Distribution Width 24.8 H, Calcium Level 8.6 Microbiology Microbiology 04/24/18 Stool Occult Blood (AKOSUA) - Final, Complete 04/23/18 Stool Occult Blood (AKOSUA) - Final, Complete 04/22/18 Urine Culture - Final, Complete Shun Griffin MD Apr 24, 2018 17:04
[2018-04-24] MEDS: TAMSULOSIN 0.4 MG CAP PO SCH (20:46)
[2018-04-25 03:54] VITALS: BP 130/63
[2018-04-25] MEDS: cefTRIAXone SOD 2 GM in D5W MINI-BAG PLUS 50 ML IV SCH (04:17)
[2018-04-25 05:18] LABS: HEMATOCRIT 28.3 % (42.0-52.0); HEMOGLOBIN 8.6 g/dl (13.5-17.5); MEAN CORPUSCULAR HEMOGLOBIN 23.5 pg (27.0-33.0); MEAN CORPUSCULAR HGB CONC 30.4 g/dl (32.0-36.5); MEAN CORPUSCULAR VOLUME 77.3 fl (80.0-96.0); PLATELET COUNT, AUTOMATED 430 10^3/uL (150-450); RED BLOOD COUNT 3.66 10^6/uL (4.30-6.10); WHITE BLOOD COUNT 9.1 10^3/uL (4.0-10.0)
[2018-04-25 05:25] LABS: BLOOD UREA NITROGEN 10 MG/DL (7-18); CALCIUM LEVEL 8.3 MG/DL (8.5-10.1); CARBON DIOXIDE LEVEL 20 MEQ/L (21-32); CHLORIDE LEVEL 111 MEQ/L (98-107); CREATININE FOR GFR 0.81 MG/DL (0.70-1.30); GLOMERULAR FILTRATION RATE > 60.0 (>60); GLUCOSE, FASTING 75 MG/DL (70-100); MAGNESIUM LEVEL 1.8 MG/DL (1.8-2.4); POTASSIUM SERUM 3.4 MEQ/L (3.5-5.1); SODIUM LEVEL 143 MEQ/L (136-145)
[2018-04-25 05:28] LABS: INR 1.6; PROTHROMBIN TIME 19.3 SECONDS (12.1-14.4)
[2018-04-25] MEDS: PANTOPRAZOLE 40MG INJ (PROTONIX) (C9113) IV SCH (07:31)
[2018-04-25 08:00] VITALS: BP 133/64
[2018-04-25] MEDS ORDERED: MAG SULF 1GM/100ML (MAG RUN) 1 GM in APPROPRIATE DILUENT 1 EA IV ONE (08:00)
[2018-04-25] MEDS ORDERED: POTASSIUM CHLORIDE 10 MEQ SR TABLET PO ONE (08:00)
--- NOTE | 2018-04-25 08:42 | CR ---
DATE OF CONSULTATION: 04/23/2018 REASON FOR CONSULTATION: Melanotic stools. HISTORY OF PRESENT ILLNESS: The patient is a 38-year-old male who presents to the emergency room (ER) with a history of lower abdominal pains, inability to urinate. He does have a history of kidney stones and has had blood in his stool recently. In the ER he was able to urinate three times and then his pain improved. However, he also did have a hemoglobin of 4.5, even though he denies any significant symptoms from that. He was admitted due to the anemia and has been given 2 units of blood so far. Fecal occult blood is positive. He has had melanotic stools and he has also had them in the past. He was scheduled that a colonoscopy a couple years ago with Dr. Metcalf but was unable to get it done to poor prep and never followed through with having it done a second time. He does have a history of heartburn and acid reflux. He takes omeprazole for it as-needed but does not take anything for it on a regular basis. Denies any other complications with nausea, vomiting or abdominal pains. No bright red blood in his stool. PAST MEDICAL HISTORY: Nephrolithiasis. Multiple sclerosis (MS). Seizure disorder. Left leg deep venous thrombosis (DVT). PAST SURGICAL HISTORY: None. ALLERGIES: PHENYTOIN. MEDICATIONS: Please see med record including Coumadin. SOCIAL HISTORY: Smokes a pack a day. Denies drug, alcohol abuse. FAMILY HISTORY: Noncontributory. REVIEW OF SYSTEMS: Per positives in history of present (HPI). PHYSICAL EXAMINATION: GENERAL: Patient is awake, alert, oriented times three. VITALS: Temperature 98.7, pulse 102, respirations 18, blood pressure 122/61, pulse ox 97% room air. HEENT: Pupils equal round react to light accommodation. HEART: S1, S2 regular rate and rhythm. LUNGS: Clear auscultation bilaterally. ABDOMEN: Soft, nontender, nondistended. EXTREMITIES: No clubbing, cyanosis or edema. LABORATORY DATA: Hemoglobin currently is 5.8, white count 9.7, platelets 445. Creatinine 0.95. B12 210, folate 6.5. IMAGING STUDIES: CT abdomen and pelvis shows multiple gallstones, multiple bilateral renal stones, right larger than the left. Staghorn stone on the right measuring up to 22 mm. On the left largest one measures up to 8 mm. No signs of hydroureteronephrosis ASSESSMENT/PLAN: The patient 38-year-old male with gallstones, nephrolithiasis, melanotic stools and anemia likely secondary to gastrointestinal (GI) source. Recommendation is to proceed with upper and lower endoscopy. Risks and benefits of the procedure discussed in detail with the patient. Risks include but are not limited bleeding, infection, perforation, possibility ability of not being able to finding the exact source of bleed. The patient understands and agrees to the procedures. Since he is still anemic, we will continue with his transfusions as of now. Continue to stabilize him through the next 24 hours and plan for upper and lower endoscopy first thing on Friday morning.
--- NOTE | 2018-04-25 08:54 | IPNPDOC ---
Text Note Date of Service The patient was seen on 04/25/18. NOTE No acute events overnight. He claims that the prep went well, and he is ready for the scope this am. No problems or questions. GEOFF SEVILLA abd - spring, nt, nd A) 38y/o male with MS, and anemia likely due to GI bleed vs. nephrolithiasis, or both nephrolithiasis P) NPO OR for colonoscopy this am. further recommendations to follow. Jonnathan Diaz DO VS,Emanuel, I+O VS, Emanuel, I+O Laboratory Tests 04/25/18 04:48 Red Blood Count 3.66 L, Mean Corpuscular Volume 77.3 L, Mean Corpuscular Hemoglobin 23.5 L, Mean Corpuscular Hemoglobin Concent 30.4 L, Red Cell Distribution Width 26.2 H, Calcium Level 8.3 L Vital Signs Date Time Temp Pulse Resp B/P (MAP) Pulse Ox O2 Delivery O2 Flow Rate FiO2 04/25/18 08:00 98.8 94 18 133/64 (87) 100 Room Air I&O- Last 24 Hours up to 6 AM 04/25/18 06:00 Intake Total 780 ml Output Total 700 ml Balance 80 ml BANDAR DIAZ DO Apr 25, 2018 08:54
[2018-04-25] MEDS: SENOKOT S TAB PO SCH (09:00)
[2018-04-25] MEDS ORDERED: fentaNYL 100 MCG/2 ML INJECTION (J3010) As Ordered ONE (09:38)
[2018-04-25] MEDS ORDERED: LIDOCAINE 2% INJ 100 MG/5 ML SDV (FOR ANES.) As Ordered ONE (09:38)
[2018-04-25] MEDS ORDERED: PROPOFOL 200 MG/20 ML VIAL As Ordered ONE ×2 (09:38→09:56)
[2018-04-25] MEDS ORDERED: PHENYLephrine HCL 500 MCG/5 ML (100MCG/ML) SYRINGE (J2370) As Ordered ONE (09:49)
[2018-04-25] MEDS ORDERED: ONDANSETRON 4MG/2ML VIAL (J2405) IV PRN (10:30)
[2018-04-25] MEDS ORDERED: LR 1,000 ML IV SCH (10:30)
[2018-04-25] MEDS: FERROUS SULFATE 325MG TAB PO SCH (11:01)
[2018-04-25] MEDS: ASCORBIC ACID 500 MG TAB PO SCH (11:01)
[2018-04-25 12:00] VITALS: BP 128/68
--- NOTE | 2018-04-25 13:09 | IPNPDOC ---
Subjective Date Seen The patient was seen on 04/25/18. Subjective Chief Complaint/HPI 38 yo male with PMH of MS, unspecified bone neoplasm, hematuria, nephrolithiasis s/p shock wave and unspecified percutaneous procedure, seizure d/o, and DVT in December 2017 on Coumadin at home presents at the hospital d/t inability to void in addition to groin pain. Events since last encounter Patient is s/p upper endoscopy and colonoscopy. He states that he feels a little bloated, but denies any other symptoms including headache, dizziness, nausea, vomiting, chest pain, palpitation, or SOB. Patient was cleared by PT for discharge. He was started on regular diet and transferred to [facility] [place]. Constitutional: Denies: Chills, Fever ENT: Denies: Head Aches Pulmonary: Denies: Dyspnea Cardiovascular: Denies: Chest Pain, Palpitations Gastrointestinal: Denies: Nausea, Vomiting, Abdominal Pain (feels his abdominal is bloated) Genitourinary: Denies: Hematuria (No gross hematuria) Neurological: Reports: Weakness (bilateral lower extremities), Incoordination; Denies: Numbness Objective Physical Examination General Exam: Positive: Alert, Cooperative, No Acute Distress Eye Exam: Positive: PERRLA, Conjunctiva & lids normal; Negative: Sclera icteric, Ptosis ENT Exam: Positive: Atraumatic Neck Exam: Positive: Supple Chest Exam: Positive: Normal air movement, Rhonchi; Negative: Rales, Wheezing Heart Exam: Positive: Rate Normal, Regular Rhythm, Normal S1, Normal S2; Negative: Murmurs, Rubs Abdomen Exam: Positive: Normal bowel sounds, Soft; Negative: Tenderness, Hepatospenomegaly Extremity Exam: Positive: Normal pulses; Negative: Clubbing, Cyanosis Skin Exam: Positive: Nl turgor and temperature; Negative: Breakdown, Lesion Neuro Exam: Positive: Normal Speech, Strength at 5/5 X4 ext (+3 in left lower extremity. +4 in right lower extremity. +5 in bilateral upper extremities.) Psych Exam: Positive: Mental status NL, Mood NL, Oriented x 3 Assessment /Plan Assessment 1. Isolated severe Anemia 2/2 iron deficiency anemia, 2/2 hematuria from nephrol ithiasis VS GI loss; improving -microcytic anemia with high RDW; low iron and low ferritin -vitals stable roughly stable since admission. S/p 4 units PRBC transfusion. Transfusion consent form re-obtained 04/23 -First stool occult blood neg. Repeat stool occult blood test positive. -H&H stable>8. F/u with CBC in AM. -home meds Coumadin for recent DVT was d/c. s/p IVC filter placement. 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 PMH of multiple UTI and nephrolithiasis. Gross hematuria resolved. -urology consulted and determines no intervention from urology at this time. If creatinine increases may contact urology again -Surgery consulted, s/p upper endoscopy and colonoscopy. On regular diet. Transferred to [facility]. -On PO ferrous sulfate 2. Sepsis 2/2 to questionable UTI, improving -initially presented with leukocytosis, tachycardia, and source of infection. Leukocytosis and tachycardia resolved. -Pos for urinary urgency and frequency. Mild hematuria present in UA. Gross hematuria resolved. -On IV Ceftriaxone. Treated with Cipro as outpatient prior to admission. UA pos for UTI. Urine Cx no growth. -Continue to f/u with vitals and CBC 3. Recent DVT -Wafarin d/c as patient's severely anemic with hematuria -Dr. Esteves consulted. IVC filter placement and TEDS. D/C Warfarin as pos for hematuria 4. Urinary retention, resolved -patient has been able to urinate since admission -urology following -On Flomax 5. Urinary leakage, likely 2/2 multiple sclerosis vs UTI -Continue to monitor -urology following -Recommend f/u outpatient 6. Multiple sclerosis -Patient has imbalance and requires walker/power chair at baseline -PT/OT ordered. Cleared by PT for d/c -Fall precaution. OOB to chair w/ assist. Activity per PT/OT 7. Hx of seizure -Continue home med Zonisamide -seizure precaution ordered DVT prophylaxis. TEDS. S/P IVC filter placement Diet. Regular diet. Plan/VTE VTE Prophylaxis Ordered?: Yes (IVC filter placed) VTE Exclusion Mechanical Proph: Other (prior DVT. IVC filter) Disposition f/u with endoscopy results. Cleared by PT VS, I&O, 24H, Fishbone Vital Signs/I&O Vital Signs Date Time Temp Pulse Resp B/P (MAP) Pulse Ox O2 Delivery O2 Flow Rate FiO2 04/25/18 12:00 98.3 75 18 128/68 (88) 99 Room Air I&O- Last 24 Hours up to 6 AM 04/25/18 06:00 Intake Total 780 ml Output Total 700 ml Balance 80 ml Laboratory Data 24H LABS Laboratory Tests 2 04/25/18 04:48: Nucleated Red Blood Cells % (auto) 0.0, Prothrombin Time 19.3H, Prothromb Time International Ratio 1.60, Anion Gap 12, Glomerular Filtration Rate > 60.0, Blood Urea Nitrogen 10, Creatinine 0.81, Sodium Level 143, Potassium Level 3.4L, Chloride Level 111H, Carbon Dioxide Level 20L, Calcium Level 8.3L, Magnesium Level 1.8 CBC/BMP Laboratory Tests 04/25/18 04:48 Red Blood Count 3.66 L, Mean Corpuscular Volume 77.3 L, Mean Corpuscular Hemoglobin 23.5 L, Mean Corpuscular Hemoglobin Concent 30.4 L, Red Cell Distribution Width 26.2 H, Calcium Level 8.3 L Microbiology Microbiology 04/24/18 Stool Occult Blood (AKOSUA) - Final, Complete 04/23/18 Stool Occult Blood (AKOSUA) - Final, Complete 04/22/18 Urine Culture - Final, Complete GME ATTESTATION GME ATTESTATION My faculty preceptor for this patient encounter was physically present during the encounter and was fully available. All aspects of the patient interview, examination, medical decision making process, and medical care plan development were reviewed and approved by the faculty preceptor. The faculty preceptor is aware and concurs with the plan as stated in the body of this note and will attest to such by his/her cosignature. ATTENDING NOTE I have both independently examined this patient as well as reviewed the note I have discussed in detail the findings and plan of treatment as documented in the note. I will continue to follow the patient and offer further guidance to the patients care as necessary during this hospital stay. CATE García MD, DO Apr 25, 2018 13:08 CORNELL MARIN MD Apr 26, 2018 07:06
[2018-04-25] MEDS ORDERED: VITA500T PO (14:21)
[2018-04-25] MEDS ORDERED: FERR1TAB8 PO (14:21)
[2018-04-25] MEDS ORDERED: KEFL500C17 PO (14:21)
[2018-04-25] MEDS ORDERED: SENN1TAB2 PO (14:21)
[2018-04-25] MEDS ORDERED: FLOM0.4C39 PO (14:21)
--- NOTE | 2018-04-25 16:08 | DS.PDOC ---
Discharge Summary General Date of Admission Apr 23, 2018 at 02:31 Date of Discharge 04/25/18 Discharge Summary PROCEDURES PERFORMED DURING STAY: IVC filter placement. Upper endoscopy and Colonoscopy. ADMITTING DIAGNOSES: 1. Severe anemia 2. Sepsis DISCHARGE DIAGNOSES: 1. Isolated severe Anemia 2/2 iron deficiency anemia vs hematuria 2. Sepsis 2/2 to UTI, resolved 3. Recent DVT 4. Urinary retention, resolved 5. Urinary leakage, likely 2/2 multiple sclerosis vs UTI 6. Multiple sclerosis 7. Hx of seizure COMPLICATIONS/CHIEF COMPLAINT: Ambulatory Dysfunction,Anemia,Hematuria. HISTORY OF PRESENT ILLNESS: 38 yo male with PMH of MS, unspecified bone neoplasm, hematuria, nephrolithiasis s/p shock wave and unspecified percutaneous procedure, seizure d/o, and DVT in December 2017 on Coumadin at home presents at the hospital d/t inability to void in addition to groin pain. Patient states that he has been having black stool since he is about 8 years old, but denies diarrhea or hematochezia. He reports occasional leakage of urine along with urinary urgency and frequency. HOSPITAL COURSE: Patient presented with tachycardia and leukocytosis initially but these later resolved. Patient received 2 units of PRBC in the ER. It was noted that patient has both gross hematuria and UA showed RBC in urine and UTI. Urology was consulted and determines no intervention from urology at this time. Urine Culture turned out to be negative. His urine gradually clears up, and gross hematuria resolved. First stool occult blood was negative but second set was positive. Patient received 2 more units of PRBC on the floor, and transfusion consent form was re-obtained on the floor. Duplex lower extremity was neg for DVT. Warfarin was d/c due to active bleeding, and patient underwent IVC filter placement by surgery team. He went through upper and lower endoscopy today. Anemia workup revealed iron deficiency, and patient has been on oral ferrous sulfate supplement. H&H after blood transfusion has been stable. DISCHARGE MEDICATIONS: Please see below. ALLERGIES: Please see below. PHYSICAL EXAMINATION ON DISCHARGE: VITAL SIGNS: Please see below. GENERAL: A&O, not in acute distress HEENT: Head normocephalic, atraumatic, no scleral icterus, no ptosis NECK: supple CARDIOVASCULAR EXAMINATION: RRR, no murmur or rubs, normal S1 and S2 RESPIRATORY EXAMINATION: Positive for rhonchi. Normal air movement ABDOMINAL EXAMINATION: Soft, bowel sound aus in all 4 quadrants, no guarding EXTREMITIES: +3 in left lower extremity. +4 in right lower extremity. +5 in bilateral upper extremities NEUROLOGICAL EXAMINATION: Normal speech, A&OX3, no numbness/tingling upon touch PSYCHIATRIC EXAMINATION: Appropriate to situation LABORATORY DATA: Please see below. IMAGING: Abdomen/pelvis CT on 04/22/18: multiple bilateral renal stones right larger than left. Staghorn up to 22mm on the right. Left staghorn stone up to 8 mm. Vascular ultrasound 04/23/18: no DVT PROGNOSIS: fair ACTIVITY: [As tolerated]. DIET: Regular diet DISCHARGE PLAN AND INSTRUCTIONS: 1. Please see primary in 7 days to check CBC. 2. Please see urology in 1-2 weeks, Dr Hogue. 3. Please see Vascular Dr Esteves in 1-2 months for IVC filter removal. 4. Please see Dr Diaz in 1-2 months for repeat endoscopy in 6 months. 5. oral hydration. 6. Consider restarting coumadin as per primary provider. 7. Please return if symptoms worsen. 8. Encourage mobility. ITEMS TO FOLLOWUP ON ON OUTPATIENT: 1. Anemia 2. Nephrolithiasis with hematuria 3. IVC filter removal 4. Endoscopy results. Repeat endoscopy in 6 months 5. Mobility/lower extremity weakness 6. Coumadin use 7. Urinary leakage DISCHARGE CONDITION: [Stable]. TIME SPENT ON DISCHARGE: Greater than 25 minutes. Vital Signs/I&Os Vital Signs Date Time Temp Pulse Resp B/P (MAP) Pulse Ox O2 Delivery O2 Flow Rate FiO2 04/25/18 12:00 98.3 75 18 128/68 (88) 99 Room Air I&O- Last 24 Hours up to 6 AM 04/25/18 05:59 Intake Total 840 ml Output Total 1050 ml Balance -210 ml Laboratory Data Labs 24H Laboratory Tests 2 04/25/18 04:48: Nucleated Red Blood Cells % (auto) 0.0, Prothrombin Time 19.3H, Prothromb Time International Ratio 1.60, Anion Gap 12, Glomerular Filtration Rate > 60.0, Blood Urea Nitrogen 10, Creatinine 0.81, Sodium Level 143, Potassium Level 3.4L, Chloride Level 111H, Carbon Dioxide Level 20L, Calcium Level 8.3L, Magnesium Level 1.8 CBC/BMP Laboratory Tests 04/25/18 04:48 Red Blood Count 3.66 L, Mean Corpuscular Volume 77.3 L, Mean Corpuscular Hemoglobin 23.5 L, Mean Corpuscular Hemoglobin Concent 30.4 L, Red Cell Distribution Width 26.2 H, Calcium Level 8.3 L Microbiology Microbiology 04/24/18 Stool Occult Blood (AKOSUA) - Final, Complete 04/23/18 Stool Occult Blood (AKOSUA) - Final, Complete 04/22/18 Urine Culture - Final, Complete Discharge Medications Scheduled (Senna Plus 8.6-50 mg) 1 Tab Tab, 1 TAB PO BID Ascorbic Acid (Vitamin C) 500 Mg Tab, 500 MG PO BID Cephalexin Monohydrate (Keflex) 500 Mg Cap, 1 CAP PO BID Ferrous Sulfate (Ferrous Sulfate) 325 Mg Tab, 325 MG PO BID Tamsulosin Hydrochloride (Flomax) 0.4 Mg Cap, 0.4 MG PO QHS Zonisamide (Zonisamide) 100 Mg Cap, 100 MG PO QPM, (Reported) TAKES AT 1800 Allergies Coded Allergies: Phenytoin (Verified Allergy, Unknown, 11/10/14) GME ATTESTATION GME ATTESTATION My faculty preceptor for this patient encounter was physically present during the encounter and was fully available. All aspects of the patient interview, examination, medical decision making process, and medical care plan development were reviewed and approved by the faculty preceptor. The faculty preceptor is aware and concurs with the plan as stated in the body of this note and will attest to such by his/her cosignature. ATTENDING NOTE I have both independently examined this patient as well as reviewed the note I have discussed in detail the findings and plan of treatment as documented in the note. I will continue to follow the patient and offer further guidance to the patients care as necessary during this hospital stay. CATE García MD, DO Apr 25, 2018 16:08 CORNELL MARIN MD Apr 26, 2018 07:08
--- NOTE | 2018-04-27 21:48 | RO ---
DATE OF PROCEDURE: 04/25/2018 PREOPERATIVE DIAGNOSIS: Melanotic stool. POSTOPERATIVE DIAGNOSIS: Melanotic stool, poor bowel prep, multiple gastric and duodenal polyps and a large cecal polyp. OPERATIVE PROCEDURE: Esophagogastroduodenoscopy (EGD) with biopsy and colonoscopy with biopsy. SURGEON: Victoriano Diaz DO ENDS BREAKAGE CLERK: None. ANESTHESIA: IV sedation. COMPLICATIONS: None. INDICATIONS FOR PROCEDURE: Patient is a 38-year-old male who presents with a history of melanotic stools and came into the emergency room due to lower abdominal pain and was found to have anemia as well. Because of that the plan was to proceed with upper and lower endoscopy. Risks and benefits of the procedure were not limited but including bleeding, infection, damage to surrounding structures, perforation, and need for further surgery were discussed in detail with the patient. Informed consent was obtained and the procedure was planned. DESCRIPTION OF PROCEDURE: The patient was brought back to operating room four and placed in the left lateral decubitus position. After a time-out to confirm proper patient and proper procedure a gastroscope was passed through the mouth down through the esophagus, stomach and into the second portion of the duodenum. Innumerable small polyps identified throughout the entire duodenum. As a scope was slowly withdrawn back into the duodenal bulb there was a very large, multilobulated polyp that was identified. Using the hot snare a few large biopsies were taken of this lesion, one of which was able to be retrieved and was brought out to send for pathology. Back inside of the stomach there were multiple of these small polyps as well. These were all felt to be similar, so no other biopsies were taken. There was no obvious ulcerations or inflammation. Scope was then removed and thus ending the upper scope. Next, a colonoscope was passed through the rectum all at the way to the level of cecum. Again, there was a large amount of liquid brown stool, which made it very difficult to identify anything small. However, just outside of the cecum was a large pedunculated polyp measuring over 2 cm in size I was able to remove with a hot snare. It was too large to be cut up into pieces or to break through the scope so I had to grab onto it with a grasper and slowly retract it and bring it out by holding it onto the end of the scope. During removal I did not identify any other obvious lesions. However, it was difficult to see because of the large amount of stool left in the colon. The patient tolerated procedure well and the procedure. At the end of the procedure I recommended that we repeat the scope in 6 months, possibly sooner depending on the pathology results due to the poor prep, but there were no other obvious lesions or signs of bleeding identified.
--- NOTE | 2018-04-29 13:26 | REPIR ---
DATE OF PROCEDURE: 04/23/2018 ATTENDING SURGEON: Dr. Jessica Esteves SAND FILLER: PREOPERATIVE DIAGNOSIS: Deep vein thrombosis (DVT), gastrointestinal hemorrhage. POSTOPERATIVE DIAGNOSIS: Deep vein thrombosis (DVT), gastrointestinal hemorrhage. PROCEDURE: Ultrasound-guided right common femoral vein cannulation, inferior vena cava filter placement. INDICATION: Patient is a 38-year-old male with a dropping hematocrit and hemoglobin who was found to have deep vein thrombosis and is unable at this time to undergo anticoagulation and will undergo placement of the inferior vena cava filter for protection from pulmonary embolus. ANESTHESIA: Local with 10 mL of 2% lidocaine. FLUORO TIME: 1.0 minutes. CONTRAST: 5 mL of ISOVUE 300. HEPARIN: None. COMPLICATIONS: None. DRAINS: None. SPECIMENS: None. IMPLANTS: Inferior vena cava filter with JORDY filter. PROCEDURE: Patient was taken to the angiography suite, placed supine on the angiography room table and then prepped and draped in a standard surgical fashion. The right common femoral vein was cannulated using ultrasound guidance. A catheter was placed in the inferior vena cava and a venogram was performed showing the position of the renal veins. The filter was then placed below the level of the renal veins under fluoroscopic guidance. Final fluoroscopic image showed the filter to be in good position and good alignment. The sheath was removed and manual compression applied at the right common femoral vein entry site for hemostasis. Dressings were then applied. The patient tolerated the procedure well. All instrument, sponge, and needle counts were correct at the end of the case. There were no complications. Dr. Esteves was present for and directed the entire case. The patient was transferred to the holding area and subsequently to the floor in stable condition.
[2018-05-26] MEDS ORDERED: SERT50TA PO (11:59)
[2018-05-26] MEDS ORDERED: STOO100C PO (11:59)
[2018-05-26] MEDS ORDERED: MULT1TAB10 PO (11:59)
[2018-05-26] MEDS ORDERED: AMOX875T2 PO (11:59)
[2018-05-26] MEDS ORDERED: OMEP20CA3 PO (12:04)
== END 2018-04-25 14:45 | disposition home health service (06) | DRG 854 ==
LOC: M ED 20:59 → M ED INP 04-23 02:31 → M MS4PR 04-23 04:00 → M PCU 04-23 08:56
PROVIDERS: ADMIT Internal Medicine Nephrology; ATTEND Hospitalist
PROC: 06H03DZ Insertion of Intraluminal Device into Inferior Vena Cava, Percutaneous Approach (ICD-10-PCS; principal; 2018-04-23)
PROC: 30233N1 Transfusion of Nonautologous Red Blood Cells into Peripheral Vein, Percutaneous Approach (ICD-10-PCS; 2018-04-23)
PROC: 0DB98ZX Excision of Duodenum, Via Natural or Artificial Opening Endoscopic, Diagnostic (ICD-10-PCS; 2018-04-25)
PROC: 0DBH8ZX Excision of Cecum, Via Natural or Artificial Opening Endoscopic, Diagnostic (ICD-10-PCS; 2018-04-25)
DX: A41.9 Sepsis, unspecified organism (principal); N39.0 Urinary tract infection, site not specified; G35 Multiple sclerosis; D50.9 Iron deficiency anemia, unspecified; Z86.718 Personal history of other venous thrombosis and embolism; R33.9 Retention of urine, unspecified; Z79.899 Other long term (current) drug therapy; Z88.8 Allergy status to other drugs, medicaments and biological substances; F17.200 Nicotine dependence, unspecified, uncomplicated; G40.909 Epilepsy, unspecified, not intractable, without status epilepticus; N20.0 Calculus of kidney; R31.0 Gross hematuria; Z79.01 Long term (current) use of anticoagulants; K31.7 Polyp of stomach and duodenum

== ENCOUNTER 2018-06-02 06:06 | Day surgery (SDC) | payer MEDICARE ==
[2018-06-02 06:36] LABS: PROTHROMBIN TIME 13.3 SECONDS (12.1-14.4)
[2018-06-02] MEDS: LR 1,000 ML IV (07:04)
[2018-06-02] MEDS ORDERED: ONDANSETRON 4MG/2ML VIAL (J2405) As Ordered (07:17)
[2018-06-02] MEDS ORDERED: dexameTHASONE 4 MG/ML 1ML VIAL (J1100) As Ordered (07:17)
[2018-06-02] MEDS ORDERED: PROPOFOL 200 MG/20 ML VIAL As Ordered ×2 (07:17→09:29)
[2018-06-02] MEDS ORDERED: LIDOCAINE 2% INJ 100 MG/5 ML SDV (FOR ANES.) As Ordered (07:17)
[2018-06-02] MEDS ORDERED: MIDAZOLAM INJ 2 MG/2 ML VIAL (J2250) As Ordered (07:18)
[2018-06-02] MEDS ORDERED: fentaNYL 100 MCG/2 ML INJECTION (J3010) As Ordered (07:18)
[2018-06-02] MEDS ORDERED: KETOROLAC 60 MG/2 ML VIAL (J1885) As Ordered (08:06)
[2018-06-02] MEDS: CONRAY-60 60% 50ML VIAL (Q9961) As Ordered (08:43)
[2018-06-02] MEDS ORDERED: LR 1,000 ML IV (10:00)
[2018-06-02] MEDS ORDERED: MEPERIDINE INJ 25 MG/ML VIAL (J2175) IV (10:00)
[2018-06-02] MEDS ORDERED: fentaNYL 100 MCG/2 ML INJECTION (J3010) IV (10:00)
[2018-06-02] MEDS ORDERED: PERCOCET 5MG/325MG TAB PO (10:00)
[2018-06-02] MEDS ORDERED: ONDANSETRON 4MG/2ML VIAL (J2405) IV (10:00)
[2018-06-02] MEDS ORDERED: ACETAMINOPHEN TAB 650MG DOSE (2X325MG) PO (10:00)
[2018-06-02] MEDS ORDERED: METOCLOPRAMIDE INJ 10MG/2ML VIAL (J2765) IV (10:00)
== END 2018-06-02 12:10 | disposition home or self-care (01) ==
LOC: M SDC 06:06
DX: N20.0 Calculus of kidney (principal); N13.30 Unspecified hydronephrosis; I73.9 Peripheral vascular disease, unspecified; R19.5 Other fecal abnormalities; K21.9 Gastro-esophageal reflux disease without esophagitis; G35 Multiple sclerosis; F41.9 Anxiety disorder, unspecified; F32.9 Major depressive disorder, single episode, unspecified; R56.9 Unspecified convulsions; M54.9 Dorsalgia, unspecified; R06.83 Snoring; F12.90 Cannabis use, unspecified, uncomplicated; E66.9 Obesity, unspecified; Z68.41 Body mass index [BMI] 40.0-44.9, adult; Z88.8 Allergy status to other drugs, medicaments and biological substances; Z79.899 Other long term (current) drug therapy; Z86.718 Personal history of other venous thrombosis and embolism; Z99.3 Dependence on wheelchair; Z72.0 Tobacco use
CPT/HCPCS: 52356

== ENCOUNTER → 2018-07-13 | Outpatient (CLI) | payer MEDICARE ==
[~2018-07-13] MED LIST changes: +AMOX875T2 PO; +FERR1TAB8 PO; +FLOM0.4C39 PO; +KEFL500C17 PO; +MULT1TAB10 PO; +OMEP20CA3 PO; +SENN1TAB2 PO; +SERT50TA PO; +STOO100C PO; +VITA500T PO; +WARF-60 PO; +WARF4TAB52 PO
--- NOTE | 2018-07-13 10:19 | REP ---
Clinical: Nephrolithiasis. Comparison: 04/18/2016. Findings: Current examination demonstrates bilateral ureteral stents in seemingly satisfactory position along with suspected early staghorn calculus forming in the lower pole of the right kidney and multiple bilateral intrarenal calculi measuring up to approximately 11 mm in the mid pole right kidney and 18 mm in the lower pole left kidney. No obvious ureteral or bladder calcifications are identified. IVC filter noted. Bowel gas pattern is nonspecific. Skeletal structures grossly unremarkable. Impression: Bilateral ureteral stents and bilateral nephrolithiasis. Electronically Signed by Sal Armas MD 07/13/2018 10:10 A
== END ==
LOC: M SMT 09:39
PROVIDERS: ATTEND Urology
DX: N20.0 Calculus of kidney (principal); Z96.0 Presence of urogenital implants
CPT/HCPCS: 36415; 74018; 80048; 85027; 87086; G0463

== ENCOUNTER → 2018-07-13 | Outpatient (CLI) | payer MEDICARE ==
[2018-07-13 19:24] LABS: BLOOD UREA NITROGEN 18 MG/DL (7-18); CALCIUM LEVEL 8.8 MG/DL (8.5-10.1); CARBON DIOXIDE LEVEL 27 MEQ/L (21-32); CHLORIDE LEVEL 112 MEQ/L (98-107); CREATININE FOR GFR 0.98 MG/DL (0.70-1.30); GLOMERULAR FILTRATION RATE > 60.0 (>60); GLUCOSE, FASTING 86 MG/DL (70-100); POTASSIUM SERUM 4.4 MEQ/L (3.5-5.1); SODIUM LEVEL 146 MEQ/L (136-145)
[2018-07-13 19:30] LABS: HEMATOCRIT 38.9 % (42.0-52.0); HEMOGLOBIN 11.7 g/dl (13.5-17.5); MEAN CORPUSCULAR HEMOGLOBIN 27.4 pg (27.0-33.0); MEAN CORPUSCULAR HGB CONC 30.1 g/dl (32.0-36.5); MEAN CORPUSCULAR VOLUME 91.1 fl (80.0-96.0); PLATELET COUNT, AUTOMATED 444 10^3/uL (150-450); RED BLOOD COUNT 4.27 10^6/uL (4.30-6.10); WHITE BLOOD COUNT 9.1 10^3/uL (4.0-10.0)
== END ==
LOC: M SMT 11:08
PROVIDERS: ATTEND Urology
DX: Z01.818 Encounter for other preprocedural examination (principal); N20.0 Calculus of kidney

== ENCOUNTER → 2018-07-13 | Outpatient (REF) | payer MEDICARE | LOC: M SMT 13:01 | PROVIDERS: ATTEND Urology | DX: Z01.818 Encounter for other preprocedural examination (principal); N20.0 Calculus of kidney; N39.0 Urinary tract infection, site not specified ==

== ENCOUNTER 2018-07-30 06:09 | Day surgery (SDC) | payer MEDICARE ==
[~2018-07-30] VITALS: Ht 167.6 cm; Wt 117.2 kg
[2018-07-30] MEDS ORDERED: LR 1,000 ML IV SCH (07:00)
[2018-07-30] MEDS ORDERED: PROPOFOL 500 MG/50 ML VIAL As Ordered ONE (07:10)
[2018-07-30] MEDS ORDERED: LIDOCAINE 2% INJ 100 MG/5 ML SDV (FOR ANES.) As Ordered ONE (07:10)
[2018-07-30] MEDS ORDERED: fentaNYL 100 MCG/2 ML INJECTION (J3010) As Ordered ONE (07:10)
[2018-07-30] MEDS ORDERED: MIDAZOLAM INJ 2 MG/2 ML VIAL (J2250) As Ordered ONE (07:10)
--- NOTE | 2018-07-30 07:51 | REP ---
Supine abdomen single AP view: Comparison is 07/13/2018. There are bilateral renal calculi, unchanged. There are bilateral ureteral stents, unchanged. There is a vena cava filter, unchanged. The bowel gas pattern is normal. Impression: No interval change. Electronically Signed by Victoriano Ramirez MD 07/30/2018 07:43 A
[2018-07-30] MEDS ORDERED: PROPOFOL 200 MG/20 ML VIAL As Ordered ONE (09:01)
[2018-07-30 09:42] VITALS: BP 146/83
--- NOTE | 2018-07-31 22:05 | RO ---
DATE OF PROCEDURE: 07/30/2018 PREPROCEDURE DIAGNOSIS: Kidney stones. POSTPROCEDURE DIAGNOSIS: Kidney stones. PROCEDURE: Bilateral extracorporeal shock wave lithotripsy. SURGEON: Victor Manuel Hogue MD TINT LAYER: None. ANESTHESIA: Monitored anesthesia care (MAC). OPERATIVE INDICATIONS: This is a 38-year-old male with a long history of kidney stones who recently underwent bilateral ureteroscopy with laser lithotripsy and basket extraction of stones. On followup imaging in the office, x-ray still showed residual large amount of stones. He was brought to the operating room today for extracorporeal shock wave lithotripsy to further fragment his stones. DESCRIPTION OF PROCEDURE: The patient was brought to the operating room where MAC anesthesia was administered. Prophylactic antibiotics were infused. He was then placed in the supine position for a left-sided extracorporeal shock wave lithotripsy first. At this point, fluoroscopy utilized to monitor the stone position and fragmentation throughout the procedure. Shock wave was then delivered to the largest left-sided kidney stone and gated. There were no arythmias. The stone did appear to fragment well. After 2500 shocks, the patient was repositioned for a right-sided extracorporeal shock wave lithotripsy. Of note, the patient had three areas where he appeared to have a stone burden on the right side. It did appear that these stones had already been fragmented into smaller pieces from his previous procedures and might be just a collection of stone fragments. At this point we began extracorporeal shock wave lithotripsy of the largest area which was in the lower pole of the right kidney. The shock waves were then delivered to this kidney stone or collection of stone ungated. There were no arrhythmias. After 2500 shocks, the procedure was concluded on the right side as well. The patient was then awakened from anesthesia and transported to the recovery room in stable condition. ESTIMATED BLOOD LOSS: 0 mL. COMPLICATIONS: None. SPECIMENS: None. PLAN: The patient will followup in the clinic in a few weeks with imaging prior to assess for residual stone burden. We will be taking his stents out at that time. MICHAEL
== END 2018-07-30 09:42 | disposition home or self-care (01) ==
LOC: M SDC 06:09
PROVIDERS: ATTEND Urology
DX: N20.0 Calculus of kidney (principal); K21.9 Gastro-esophageal reflux disease without esophagitis; D64.9 Anemia, unspecified; F41.9 Anxiety disorder, unspecified; F32.9 Major depressive disorder, single episode, unspecified; G35 Multiple sclerosis; F17.210 Nicotine dependence, cigarettes, uncomplicated; Z79.899 Other long term (current) drug therapy; F12.10 Cannabis abuse, uncomplicated
CPT/HCPCS: 50590; 74018; J0690; J2250; J3010

== ENCOUNTER → 2018-08-18 | Outpatient (CLI) | payer MEDICARE ==
[~2018-08-18] MED LIST changes: +CARB200T98 OR; +FLOM0.4C39 OR; +FURO20TA2 OR; +TIZA2TA OR
--- NOTE | 2018-08-18 17:22 | REP ---
KUB: Two views presented. History: Kidney stones. Comparison KUB study July 30, 2018. Findings: Bilateral double pigtail ureteral stents are noted in place. The right stent is a little larger in caliber than the left. The vena cava filter is noted in place. There is calcific material projecting in the intrarenal collecting system region bilaterally right more extensively than left. This is similar in appearance to the prior study of July 30, 2018. Bowel gas pattern is normal. No ureteral calculus is evident. There may be some mineral deposition around the proximal pigtail of the right ureteral stent. Electronically Signed by Brandon Andres MD 08/18/2018 05:51 P
== END ==
LOC: M SMT 14:52
PROVIDERS: ATTEND Urology
DX: N20.0 Calculus of kidney (principal); Z96.0 Presence of urogenital implants

== ENCOUNTER 2018-08-20 18:22 | Emergency (ER) | payer MEDICARE ==
[~2018-08-20] VITALS: Ht 167.6 cm; Wt 118.2 kg
[~2018-08-20 18:22] MED LIST changes: -CARB200T98 OR; -FLOM0.4C39 OR; -FURO20TA2 OR; -TIZA2TA OR
[2018-08-20] MEDS ORDERED: TIZA2TA OR (18:50)
[2018-08-20] MEDS ORDERED: FLOM0.4C39 OR (18:50)
[2018-08-20] MEDS ORDERED: CARB200T98 OR (18:50)
[2018-08-20] MEDS ORDERED: FURO20TA2 OR (18:50)
[2018-08-20] MEDS ORDERED: KEFL500C17 PO (19:44)
[2018-08-20] MEDS ORDERED: CEPHALEXIN 500 MG CAP PO ONE (19:45)
[2018-08-20 20:25] VITALS: BP 132/76
== END 2018-08-20 20:26 | disposition home or self-care (01) ==
LOC: M ED 18:22
DX: R33.9 Retention of urine, unspecified (principal); G35 Multiple sclerosis; G40.909 Epilepsy, unspecified, not intractable, without status epilepticus; Z86.718 Personal history of other venous thrombosis and embolism; Z95.828 Presence of other vascular implants and grafts; F17.200 Nicotine dependence, unspecified, uncomplicated; Z88.8 Allergy status to other drugs, medicaments and biological substances; Z79.899 Other long term (current) drug therapy; Z79.01 Long term (current) use of anticoagulants

== ENCOUNTER 2020-03-03 11:33 | Day surgery (SDC) | payer MEDICARE, MEDICAID ==
[~2020-03-03] VITALS: Ht 167.6 cm; Wt 127.0 kg
[~2020-03-03 11:33] MED LIST changes: -/PANT40TA OR; -/WARF5TA OR; +ACETAMINOPHEN 1000MG 100ML IV BTL (OFIRMEV) (J0131 PER 10MG) As Ordered ONE; +ASPI-1 PO; -ASPI325T PO; +CARB200T98 OR; +COUM1TAB17 OR; +FLOM0.4C39 OR; +FURO20TA2 OR; +KETOROLAC 60MG 2ML VIAL As Ordered ONE; +LIDOCAINE 2% 100MG/5ML SDV (FOR ANES.) As Ordered ONE; +LR 1,000 ML IV ONE; +MIDAZOLAM INJ 2MG/2ML VIAL (J2250 PER 1MG) As Ordered ONE; +MM S100C PO; +MULT1TAB7 PO; +OMEP1CAP73 PO; -OMEP20CA3 PO; +ONDANSETRON 4MG/2ML VIAL As Ordered ONE; +PROT1TAB2 OR; +ROCURONIUM BROMIDE 50 MG/5 ML VIAL As Ordered ONE; +SENN-53 PO; -SENN1TAB2 PO; +SERT-141 PO; -SERT50TA PO; -STOO100C PO; +SUGAMMADEX SODIUM 500 MG/5 ML VIAL (BRIDION) As Ordered ONE; +TIZA2TA OR; +VITA-243 PO; -VITA500T PO; +ZONI100C17 PO; -ZONI100C2 PO; +ceFAZolin SOD 2 GM in IV 1 EA IV ONE; +dexameTHASONE 4 MG/ML 1ML VIAL (J1100 PER 1MG) As Ordered ONE; +fentaNYL 100 MCG/2 ML INJECTION (J3010) As Ordered ONE; +propofoL 200 MG/20 ML VIAL As Ordered ONE
[2020-03-03] MEDS ORDERED: ceFAZolin 2 GM/D5W 50 ML IV BAG (J0690 PER 500MG) As Ordered ONE (11:48)
[2020-03-03] MEDS ORDERED: BUPIVACAINE/EPIN 0.25% 30 ML VIAL As Ordered ONE (11:50)
[2020-03-03] MEDS ORDERED: fentaNYL 100 MCG/2 ML INJECTION (J3010) As Ordered ONE ×2 (12:58→13:20)
[2020-03-03] MEDS ORDERED: LABETALOL 100MG/20ML VIAL As Ordered ONE (13:41)
[2020-03-03] MEDS ORDERED: ONDANSETRON 4MG/2ML VIAL IV PRN (15:00)
[2020-03-03] MEDS ORDERED: LR 1,000 ML IV SCH (15:00)
[2020-03-03] MEDS ORDERED: oxyCODONE 5MG TAB PO PRN (15:00)
[2020-03-03] MEDS ORDERED: fentaNYL 100 MCG/2 ML INJECTION (J3010) IV PRN (15:00)
[2020-03-03] MEDS ORDERED: HYDROMORPHONE HCL 0.5 MG/ 0.5 ML SYRINGE (J1170 PER 1) IV PRN (15:00)
[2020-03-03] MEDS ORDERED: NORCO, ANEXSIA 5/325MG TABLET (HYDROcodone/ACETAMINOPHEN) PO PRN (15:00)
[2020-03-03 15:50] VITALS: BP 141/89
--- NOTE | 2020-03-20 10:28 | RO ---
DATE OF OPERATION: 03/03/2020 PREOPERATIVE DIAGNOSIS: Symptomatic cholelithiasis. POSTOPERATIVE DIAGNOSIS: Symptomatic cholelithiasis. PROCEDURE: Robotic cholecystectomy. SURGEON: Victoriano Diaz MD ASSIST: Zaira Hopkins ANESTHESIA: General. ESTIMATED BLOOD LOSS: 5. COMPLICATIONS: None. INDICATIONS FOR PROCEDURE: The patient is a 40-year-old male who presents with right upper quadrant pain and found to have symptomatic cholelithiasis. Recommendation was to proceed with a robotic cholecystectomy. Risks and benefits of the procedure were not limited to, but included bleeding, infection, hernia formation, damage to surrounding structures and need for further surgery were discussed in detail with the patient. Informed consent was obtained and procedure was planned. DESCRIPTION OF PROCEDURE: The patient was brought back to operating room 7. After sufficient sedation, the abdomen was sterilely prepped and draped. Next, timeout was done to confirm proper patient and proper procedure. Following that, an 8 mm incision was made in the left upper quadrant, Veress needle was inserted, and the abdomen was insufflated to 50 mmHg. Veress needle was then removed and an 8 mm Optiview port was used to gain access to the abdomen. Once the abdomen was entered, three more ports were placed across upper abdomen and into the right upper quadrant. The robot was then docked to the ports. Next, from the console the gallbladder was identified. It was elevated up towards the right shoulder using a fundus grasper. The omentum and peritoneal adhesions to the anterior gallbladder were dissected free all the way down to the neck of the gallbladder. Once the neck was dissected circumferentially, the cystic duct and cystic artery were carefully dissected free and both doubly clipped and cut. The gallbladder was then dissected free from the gallbladder fossa using electrocautery. It was then placed inside of a 5 mm Endo Catch bag and brought out through the right lateral port site. Once the gallbladder was removed, the fascia at the right port site had to be stretched to remove it. Using the 2-0 V- Loc suture, I closed the fascia from that port site from the intraperitoneal site. Once that was completed, the abdomen was irrigated and flushed. The abdomen was then desufflated. Skin incision was closed with 4-0 Vicryl subcuticular sutures. The abdomen was cleaned and dried, and Steri-Strips, 4x4 and tape were applied. MICHAEL
== END 2020-03-03 16:01 | disposition home or self-care (01) ==
LOC: M SDC 11:33
PROVIDERS: ATTEND Surgery
DX: K80.10 Calculus of gallbladder with chronic cholecystitis without obstruction (principal); G35 Multiple sclerosis; K21.9 Gastro-esophageal reflux disease without esophagitis; Z86.718 Personal history of other venous thrombosis and embolism; F41.9 Anxiety disorder, unspecified; F32.9 Major depressive disorder, single episode, unspecified; F17.218 Nicotine dependence, cigarettes, with other nicotine-induced disorders; D64.9 Anemia, unspecified; Z79.899 Other long term (current) drug therapy; Z88.8 Allergy status to other drugs, medicaments and biological substances
CPT/HCPCS: 47562; 88304; J0131; J0690; J1100; J1885; J2250; J2405; J3010

== ENCOUNTER 2022-03-01 11:19 | Observation (INO) | payer MEDICARE, MEDICAID ==
[~2022-03-01] VITALS: Ht 167.6 cm; Wt 148.7 kg
[~2022-03-01 11:19] MED LIST changes: -ACETAMINOPHEN 1000MG 100ML IV BTL (OFIRMEV) (J0131 PER 10MG) As Ordered ONE; -KETOROLAC 60MG 2ML VIAL As Ordered ONE; -LIDOCAINE 2% 100MG/5ML SDV (FOR ANES.) As Ordered ONE; -LR 1,000 ML IV ONE; -MIDAZOLAM INJ 2MG/2ML VIAL (J2250 PER 1MG) As Ordered ONE; +MONU5.636 PO; +MYRB50TA PO; +OCRE300I IV; -ONDANSETRON 4MG/2ML VIAL As Ordered ONE; +POTA1TAB14 PO; -ROCURONIUM BROMIDE 50 MG/5 ML VIAL As Ordered ONE; +SIMETHICONE 40MG/0.6ML DROPS 30ML As Ordered ONE; -SUGAMMADEX SODIUM 500 MG/5 ML VIAL (BRIDION) As Ordered ONE; +VITATAB74 PO; -ZONI100C17 PO; +ZONI100C67 PO; -ceFAZolin SOD 2 GM in IV 1 EA IV ONE; -dexameTHASONE 4 MG/ML 1ML VIAL (J1100 PER 1MG) As Ordered ONE; -fentaNYL 100 MCG/2 ML INJECTION (J3010) As Ordered ONE; -propofoL 200 MG/20 ML VIAL As Ordered ONE
[2022-03-01] MEDS ORDERED: LR 1,000 ML IV SCH ×2 (12:35→14:00)
[2022-03-01] MEDS ORDERED: fentaNYL 100 MCG/2 ML INJECTION As Ordered ONE (13:12)
[2022-03-01] MEDS ORDERED: propofoL 200 MG/20 ML VIAL As Ordered ONE (13:57)
[2022-03-01] MEDS ORDERED: LIDOCAINE 2% 100MG/5ML SDV (FOR ANES.) As Ordered ONE (13:57)
[2022-03-01] MEDS ORDERED: fentaNYL 100 MCG/2 ML INJECTION IV PRN (14:00)
[2022-03-01] MEDS ORDERED: ONDANSETRON 4MG 2ML VIAL IV PRN (14:00)
[2022-03-01] MEDS ORDERED: MAALOX 30 ML SUSP *UDC PO PRN (17:50)
[2022-03-01] MEDS: SIMETHICONE 80MG CHEW TAB PO PRN (18:53)
[2022-03-01 19:30] VITALS: BP 148/90
[2022-03-01 19:49] LABS: ALBUMIN 3.1 GM/DL (3.2-5.2); ALT/SGPT 102 U/L (12-78); BILIRUBIN,TOTAL 0.2 MG/DL (0.2-1.0); BLOOD UREA NITROGEN 10 MG/DL (7-18); CALCIUM LEVEL 9.2 MG/DL (8.5-10.1); CARBON DIOXIDE LEVEL 27 MEQ/L (21-32); CHLORIDE LEVEL 109 MEQ/L (98-107); CREATININE FOR GFR 0.62 MG/DL (0.70-1.30); GLOMERULAR FILTRATION RATE > 60.0 (>60); GLUCOSE, FASTING 122 MG/DL (70-100); POTASSIUM SERUM 3.8 MEQ/L (3.5-5.1); SODIUM LEVEL 142 MEQ/L (136-145); TOTAL PROTEIN 6.7 GM/DL (6.4-8.2)
[2022-03-01 20:00] VITALS: BP 163/84
[2022-03-01] MEDS ORDERED: FLEET ENEMA PR PRN (20:30)
[2022-03-01 21:00] VITALS: BP 165/87
[2022-03-01] MEDS: MIRALAX *UNIT DOSE* 17GM PACKET PO SCH (21:00)
[2022-03-01 22:00] VITALS: BP 168/82
[2022-03-01 23:00] VITALS: BP 168/84
[2022-03-02] VITALS: BP 162/86
[2022-03-02 02:00] VITALS: BP 158/85
[2022-03-02] MEDS: SIMETHICONE 80MG CHEW TAB PO PRN (02:41)
[2022-03-02] MEDS ORDERED: BISACODYL 10 MG SUPP PR ONE (03:20)
[2022-03-02 06:00] VITALS: BP 162/80
[2022-03-02] MEDS ORDERED: OMEPRAZOLE 20MG CAP PO PRN (06:35)
[2022-03-02] MEDS ORDERED: POTASSIUM CHLORIDE 10MEQ SR TABLET PO SCH (09:00)
[2022-03-02] MEDS ORDERED: SERTRALINE HCL 50 MG TAB PO SCH (09:00)
[2022-03-02] MEDS ORDERED: carBAMazepine XR 200 MG TAB PO SCH (09:00)
[2022-03-02] MEDS ORDERED: DOCUSATE SODIUM 100MG CAPSULE PO SCH (09:00)
[2022-03-02] MEDS ORDERED: ENOXAPARIN 40MG/0.4ML SYRINGE (J1650 PER 10MG) SC SCH (09:00)
[2022-03-02] MEDS: MIRALAX *UNIT DOSE* 17GM PACKET PO SCH (09:37)
[2022-03-02] MEDS ORDERED: MIRA3350 PO (11:53)
== END 2022-03-02 12:55 | disposition home health service (06) ==
LOC: M SDC 11:19 → M MS5PR 11:20 → M SDC 03-02 12:55
PROVIDERS: ADMIT Internal Medicine; ATTEND Internal Medicine
DX: R14.0 Abdominal distension (gaseous) (principal); R10.10 Upper abdominal pain, unspecified; K31.7 Polyp of stomach and duodenum; K29.70 Gastritis, unspecified, without bleeding; K31.89 Other diseases of stomach and duodenum; G35 Multiple sclerosis; Z79.899 Other long term (current) drug therapy; Z88.8 Allergy status to other drugs, medicaments and biological substances; K21.9 Gastro-esophageal reflux disease without esophagitis; G40.909 Epilepsy, unspecified, not intractable, without status epilepticus; F17.200 Nicotine dependence, unspecified, uncomplicated
CPT/HCPCS: 36415; 43239; 71045; 74018; 80053; 88305; 96372; G0378; J1650; J3010

== ENCOUNTER 2022-10-03 06:38 | Inpatient (IN) | payer MEDICARE, MEDICAID ==
[2022-10-03] VITALS (10 sets, daily range): BP systolic 120–150; BP diastolic 73–97; O2SAT 96
[~2022-10-03] VITALS: Ht 172.7 cm; Wt 141.7 kg
[~2022-10-03 06:38] MED LIST changes: -CARB200T98 OR; +CARB200T98 PO; -FURO20TA2 OR; +FURO20TA2 PO; +LR 1,000 ML IV SCH; +MIRA3350 PO; -SIMETHICONE 40MG/0.6ML DROPS 30ML As Ordered ONE
[2022-10-03] MEDS ORDERED: BUPIVACAINE/EPIN 0.25% 30ML VIAL As Ordered ONE (07:06)
[2022-10-03] MEDS ORDERED: MIDAZOLAM INJ 2MG/2ML VIAL As Ordered ONE (07:10)
[2022-10-03] MEDS ORDERED: ERTAPENEM SODIUM 1 GM in NS MINI-BAG PLUS 50 ML IV ONE (07:10)
[2022-10-03] MEDS ORDERED: ROCURONIUM BROMIDE 50MG/5ML VIAL As Ordered ONE ×2 (07:11→10:19)
[2022-10-03] MEDS ORDERED: fentaNYL 100 MCG/2 ML INJECTION As Ordered ONE ×2 (07:11→10:23)
[2022-10-03] MEDS ORDERED: ONDANSETRON 4MG 2ML VIAL As Ordered ONE (07:11)
[2022-10-03] MEDS ORDERED: LIDOCAINE 2% 100MG/5ML SDV (FOR ANES.) As Ordered ONE (07:11)
[2022-10-03] MEDS ORDERED: propofoL 200 MG/20 ML VIAL As Ordered ONE (07:11)
[2022-10-03] MEDS ORDERED: ACETAMINOPHEN 1000MG 100ML IV BAG As Ordered ONE (07:16)
[2022-10-03] MEDS ORDERED: OMEP40CA5 PO (07:32)
[2022-10-03] MEDS ORDERED: FERR325T19 PO (07:32)
[2022-10-03] MEDS ORDERED: AMMO12CR7 TOP (07:36)
[2022-10-03] MEDS ORDERED: TIZA2TA PO (07:36)
[2022-10-03] MEDS ORDERED: TIZA1TAB12 PO (07:36)
[2022-10-03] MEDS ORDERED: NAPR-885 PO (07:38)
[2022-10-03] MEDS ORDERED: FURO40TA2 PO (07:38)
[2022-10-03] MEDS ORDERED: MILKSUS3 PO (07:39)
[2022-10-03] MEDS ORDERED: HOME MED LIST COMPLETE! XX SCH (07:45)
[2022-10-03] MEDS ORDERED: KETOROLAC 60MG 2ML VIAL As Ordered ONE (09:30)
[2022-10-03] MEDS ORDERED: SUGAMMADEX SODIUM 500 MG/5 ML VIAL (BRIDION) As Ordered ONE (09:30)
[2022-10-03] MEDS ORDERED: GLYCOPYRROLATE INJ 0.2 MG/ML 2 ML VIAL As Ordered ONE (09:37)
[2022-10-03] MEDS ORDERED: ePHEDrine SULFATE 25 MG/5 ML(5MG/ML) SYRINGE As Ordered ONE (10:19)
[2022-10-03] MEDS ORDERED: MORPHINE 2 MG/ML 1ML VIAL IV PRN (11:40)
[2022-10-03] MEDS ORDERED: LR 1,000 ML IV SCH (11:40)
[2022-10-03] MEDS ORDERED: fentaNYL 100 MCG/2 ML INJECTION IV PRN (11:40)
[2022-10-03] MEDS ORDERED: oxyCODONE 5MG TAB PO PRN (11:40)
[2022-10-03] MEDS ORDERED: ONDANSETRON 4MG 2ML VIAL IV PRN ×2 (11:40→12:45)
[2022-10-03] MEDS ORDERED: KETOROLAC 30 MG/ML 1ML VIAL IV PRN (12:45)
[2022-10-03] MEDS ORDERED: ACETAMINOPHEN TAB 650MG DOSE (2X325MG) PO PRN (12:45)
[2022-10-03] MEDS ORDERED: NORCO, ANEXSIA 5/325MG TABLET (HYDROcodone/ACETAMINOPHEN) PO PRN (12:45)
[2022-10-03] MEDS: NS 1,000 ML IV SCH ×2 (15:09→23:38)
[2022-10-03 15:58] LABS: HEMATOCRIT 46.2 % (42.0-52.0); HEMOGLOBIN 14.7 g/dl (13.5-17.5); MEAN CORPUSCULAR HEMOGLOBIN 27.7 pg (27.0-33.0); MEAN CORPUSCULAR HGB CONC 31.8 g/dl (32.0-36.5); PLATELET COUNT, AUTOMATED 356 10^3/uL (150-450); RED BLOOD COUNT 5.31 10^6/uL (4.30-6.10); WHITE BLOOD COUNT 14.9 10^3/uL (4.0-10.0)
[2022-10-03 16:23] LABS: BLOOD UREA NITROGEN 8 MG/DL (9-23); CALCIUM LEVEL 8.6 MG/DL (8.5-10.1); CARBON DIOXIDE LEVEL 29 MMOL/L (20-31); CHLORIDE LEVEL 106 MMOL/L (98-107); CREATININE FOR GFR 0.62 MG/DL (0.70-1.30); GLOMERULAR FILTRATION RATE > 60.0 (>60); GLUCOSE, FASTING 107 MG/DL (60-100); SODIUM LEVEL 143 MMOL/L (136-145)
[2022-10-03] MEDS ORDERED: PILL CUTTER 1 EACH XX PRN (16:50)
[2022-10-03] MEDS: carBAMazepine XR 200 MG TAB PO SCH (21:02)
[2022-10-03] MEDS: FERROUS SULFATE 325MG TAB PO SCH (21:02)
[2022-10-03] MEDS: PIPERACILLIN/TAZOBACTAM SOD 3.375 GM in D5W MINI-BAG PLUS 50 ML IV SCH (21:03)
[2022-10-04] VITALS (8 sets, daily range): BP systolic 120–140; BP diastolic 78–88; O2SAT 79–96
[2022-10-04] MEDS: PIPERACILLIN/TAZOBACTAM SOD 3.375 GM in D5W MINI-BAG PLUS 50 ML IV SCH ×2 (02:33→08:31)
[2022-10-04 06:57] LABS: HEMATOCRIT 39.1 % (42.0-52.0); MEAN CORPUSCULAR HEMOGLOBIN 27.7 pg (27.0-33.0); MEAN CORPUSCULAR HGB CONC 31.7 g/dl (32.0-36.5); MEAN CORPUSCULAR VOLUME 87.5 fl (80.0-96.0); PLATELET COUNT, AUTOMATED 327 10^3/uL (150-450); RED BLOOD COUNT 4.47 10^6/uL (4.30-6.10); WHITE BLOOD COUNT 13.5 10^3/uL (4.0-10.0)
[2022-10-04 07:07] LABS: HEMOGLOBIN 12.4 g/dl (13.5-17.5)
[2022-10-04 07:33] LABS: BLOOD UREA NITROGEN 6 MG/DL (9-23); CARBON DIOXIDE LEVEL 29 MMOL/L (20-31); CHLORIDE LEVEL 108 MMOL/L (98-107); CREATININE FOR GFR 0.62 MG/DL (0.70-1.30); GLOMERULAR FILTRATION RATE > 60.0 (>60); GLUCOSE, FASTING 74 MG/DL (60-100); POTASSIUM SERUM 3.8 MMOL/L (3.5-5.1); SODIUM LEVEL 144 MMOL/L (136-145)
[2022-10-04] MEDS: DOCUSATE SODIUM 100MG CAPSULE PO SCH (08:31)
[2022-10-04] MEDS: ASCORBIC ACID 500 MG TAB PO SCH (08:31)
[2022-10-04] MEDS: LACTIC ACID 12% LOTION 225 GM BTL TOP SCH (08:31)
[2022-10-04] MEDS: PANTOPRAZOLE 40MG TAB (PROTONIX) PO SCH (08:32)
[2022-10-04] MEDS: SERTRALINE HCL 50 MG TAB PO SCH (08:32)
[2022-10-04] MEDS: carBAMazepine XR 200 MG TAB PO SCH ×2 (08:32→20:26)
[2022-10-04] MEDS: FUROSEMIDE 40 MG TAB PO SCH (08:32)
[2022-10-04] MEDS: FERROUS SULFATE 325MG TAB PO SCH ×2 (08:32→20:26)
[2022-10-04] MEDS: tiZANidine 4 MG TAB PO SCH ×2 (08:33→20:26)
[2022-10-04] MEDS ORDERED: ENOXAPARIN 40MG/0.4ML SYRINGE (J1650 PER 10MG) SC SCH (09:00)
[2022-10-04] MEDS: ENOXAPARIN 40MG/0.4ML SYRINGE (J1650 PER 10MG) SC SCH (20:27)
[2022-10-05 00:09] VITALS: O2SAT 95
[2022-10-05 04:50] VITALS: BP 141/96
[2022-10-05 06:09] LABS: HEMATOCRIT 39.9 % (42.0-52.0); HEMOGLOBIN 12.3 g/dl (13.5-17.5); MEAN CORPUSCULAR HEMOGLOBIN 27.1 pg (27.0-33.0); MEAN CORPUSCULAR HGB CONC 30.8 g/dl (32.0-36.5); MEAN CORPUSCULAR VOLUME 87.9 fl (80.0-96.0); PLATELET COUNT, AUTOMATED 324 10^3/uL (150-450); RED BLOOD COUNT 4.54 10^6/uL (4.30-6.10); WHITE BLOOD COUNT 11.9 10^3/uL (4.0-10.0)
[2022-10-05 06:46] LABS: BLOOD UREA NITROGEN < 5 MG/DL (9-23); CARBON DIOXIDE LEVEL 30 MMOL/L (20-31); CHLORIDE LEVEL 106 MMOL/L (98-107); CREATININE FOR GFR 0.65 MG/DL (0.70-1.30); GLOMERULAR FILTRATION RATE > 60.0 (>60); GLUCOSE, FASTING 88 MG/DL (60-100); POTASSIUM SERUM 3.3 MMOL/L (3.5-5.1); SODIUM LEVEL 144 MMOL/L (136-145)
[2022-10-05] MEDS: FERROUS SULFATE 325MG TAB PO SCH ×2 (08:51→20:26)
[2022-10-05] MEDS: tiZANidine 4 MG TAB PO SCH ×2 (08:51→20:26)
[2022-10-05] MEDS: SERTRALINE HCL 50 MG TAB PO SCH (08:51)
[2022-10-05] MEDS: PANTOPRAZOLE 40MG TAB (PROTONIX) PO SCH (08:51)
[2022-10-05] MEDS: FUROSEMIDE 40 MG TAB PO SCH (08:51)
[2022-10-05] MEDS: DOCUSATE SODIUM 100MG CAPSULE PO SCH (08:51)
[2022-10-05] MEDS: carBAMazepine XR 200 MG TAB PO SCH ×2 (08:51→20:26)
[2022-10-05] MEDS: ASCORBIC ACID 500 MG TAB PO SCH (08:51)
[2022-10-05] MEDS: LACTIC ACID 12% LOTION 225 GM BTL TOP SCH (08:52)
[2022-10-05] MEDS: ENOXAPARIN 40MG/0.4ML SYRINGE (J1650 PER 10MG) SC SCH ×2 (08:52→20:25)
[2022-10-05] MEDS: IPRATROPIUM 0.5MG/ALBUTEROL 2.5MG INH SOL UD 3ML (DUONEB) NEB SCH ×3 (12:55→19:30)
[2022-10-05 16:00] VITALS: BP 152/92
[2022-10-05 19:39] VITALS: BP 149/93
[2022-10-06 05:18] VITALS: BP 112/81
[2022-10-06 05:51] LABS: HEMATOCRIT 41.7 % (42.0-52.0); HEMOGLOBIN 13.2 g/dl (13.5-17.5); MEAN CORPUSCULAR HEMOGLOBIN 27.6 pg (27.0-33.0); MEAN CORPUSCULAR HGB CONC 31.7 g/dl (32.0-36.5); MEAN CORPUSCULAR VOLUME 87.1 fl (80.0-96.0); PLATELET COUNT, AUTOMATED 332 10^3/uL (150-450); RED BLOOD COUNT 4.79 10^6/uL (4.30-6.10); WHITE BLOOD COUNT 11.7 10^3/uL (4.0-10.0)
[2022-10-06 06:15] LABS: BLOOD UREA NITROGEN 6 MG/DL (9-23); CALCIUM LEVEL 8.2 MG/DL (8.5-10.1); CARBON DIOXIDE LEVEL 30 MMOL/L (20-31); CHLORIDE LEVEL 104 MMOL/L (98-107); CREATININE FOR GFR 0.62 MG/DL (0.70-1.30); GLOMERULAR FILTRATION RATE > 60.0 (>60); GLUCOSE, FASTING 101 MG/DL (60-100); POTASSIUM SERUM 3.2 MMOL/L (3.5-5.1); SODIUM LEVEL 141 MMOL/L (136-145)
[2022-10-06] MEDS: IPRATROPIUM 0.5MG/ALBUTEROL 2.5MG INH SOL UD 3ML (DUONEB) NEB SCH (07:41)
[2022-10-06] MEDS: SERTRALINE HCL 50 MG TAB PO SCH (08:43)
[2022-10-06] MEDS: PANTOPRAZOLE 40MG TAB (PROTONIX) PO SCH (08:43)
[2022-10-06] MEDS: carBAMazepine XR 200 MG TAB PO SCH ×2 (08:43→20:05)
[2022-10-06] MEDS: DOCUSATE SODIUM 100MG CAPSULE PO SCH (08:43)
[2022-10-06] MEDS: FERROUS SULFATE 325MG TAB PO SCH ×2 (08:43→20:05)
[2022-10-06] MEDS: ASCORBIC ACID 500 MG TAB PO SCH (08:43)
[2022-10-06] MEDS: tiZANidine 4 MG TAB PO SCH ×2 (08:43→20:05)
[2022-10-06] MEDS: LACTIC ACID 12% LOTION 225 GM BTL TOP SCH (08:44)
[2022-10-06] MEDS: ENOXAPARIN 40MG/0.4ML SYRINGE (J1650 PER 10MG) SC SCH ×2 (08:44→20:05)
[2022-10-06] MEDS: FUROSEMIDE 40 MG TAB PO SCH (08:44)
[2022-10-06] MEDS ORDERED: POTASSIUM CHLORIDE 10MEQ SR TABLET PO ONE ×2 (10:00→16:00)
[2022-10-06] MEDS: SENNA 8.6 MG TAB (SENOKOT) PO SCH ×2 (12:09→20:05)
[2022-10-06 14:00] VITALS: BP 132/64
[2022-10-06 21:30] VITALS: BP 129/91
[2022-10-07 00:59] VITALS: O2SAT 97
[2022-10-07 05:40] VITALS: BP 110/71
[2022-10-07 05:55] LABS: HEMATOCRIT 42.7 % (42.0-52.0); HEMOGLOBIN 13.4 g/dl (13.5-17.5); MEAN CORPUSCULAR HEMOGLOBIN 27.5 pg (27.0-33.0); MEAN CORPUSCULAR HGB CONC 31.4 g/dl (32.0-36.5); MEAN CORPUSCULAR VOLUME 87.7 fl (80.0-96.0); PLATELET COUNT, AUTOMATED 344 10^3/uL (150-450); RED BLOOD COUNT 4.87 10^6/uL (4.30-6.10); WHITE BLOOD COUNT 11.1 10^3/uL (4.0-10.0)
[2022-10-07 06:10] VITALS: O2SAT 90
[2022-10-07 06:20] LABS: BLOOD UREA NITROGEN 8 MG/DL (9-23); CALCIUM LEVEL 8.6 MG/DL (8.5-10.1); CARBON DIOXIDE LEVEL 29 MMOL/L (20-31); CHLORIDE LEVEL 106 MMOL/L (98-107); CREATININE FOR GFR 0.69 MG/DL (0.70-1.30); GLOMERULAR FILTRATION RATE > 60.0 (>60); GLUCOSE, FASTING 97 MG/DL (60-100); POTASSIUM SERUM 3.6 MMOL/L (3.5-5.1); SODIUM LEVEL 141 MMOL/L (136-145)
[2022-10-07] MEDS ORDERED: MOM 30ML SUSPENSION UDC PO SCH (09:00)
[2022-10-07] MEDS ORDERED: MIRALAX *UNIT DOSE* 17GM PACKET PO SCH (09:00)
[2022-10-07] MEDS ORDERED: DOCUSATE SODIUM 100MG CAPSULE PO SCH (09:00)
[2022-10-07] MEDS: FUROSEMIDE 40 MG TAB PO SCH (09:16)
[2022-10-07] MEDS: PANTOPRAZOLE 40MG TAB (PROTONIX) PO SCH (09:16)
[2022-10-07] MEDS: ASCORBIC ACID 500 MG TAB PO SCH (09:16)
[2022-10-07] MEDS: SENNA 8.6 MG TAB (SENOKOT) PO SCH (09:16)
[2022-10-07] MEDS: FERROUS SULFATE 325MG TAB PO SCH (09:16)
[2022-10-07] MEDS: SERTRALINE HCL 50 MG TAB PO SCH (09:16)
[2022-10-07] MEDS: carBAMazepine XR 200 MG TAB PO SCH (09:16)
[2022-10-07] MEDS: ENOXAPARIN 40MG/0.4ML SYRINGE (J1650 PER 10MG) SC SCH (09:17)
[2022-10-07] MEDS: tiZANidine 4 MG TAB PO SCH (09:17)
[2022-10-07] MEDS: LACTIC ACID 12% LOTION 225 GM BTL TOP SCH (09:17)
[2022-10-07 13:41] VITALS: BP 129/88
== END 2022-10-07 15:33 | disposition home or self-care (01) | DRG 330 ==
LOC: M OR 06:38 → M MSPAV 14:11
PROVIDERS: ADMIT Surgery; ATTEND Surgery
PROC: 8E0W4CZ Robotic Assisted Procedure of Trunk Region, Percutaneous Endoscopic Approach (ICD-10-PCS; 2022-10-03)
PROC: 0DBN8ZZ Excision of Sigmoid Colon, Via Natural or Artificial Opening Endoscopic (ICD-10-PCS; 2022-10-03)
PROC: 0DBW3ZX Excision of Peritoneum, Percutaneous Approach, Diagnostic (ICD-10-PCS; 2022-10-03)
PROC: 0D1N4Z4 Bypass Sigmoid Colon to Cutaneous, Percutaneous Endoscopic Approach (ICD-10-PCS; principal; 2022-10-03 07:30)
DX: R15.9 Full incontinence of feces (principal); Z68.42 Body mass index [BMI] 45.0-49.9, adult; K63.5 Polyp of colon; G35 Multiple sclerosis; K66.9 Disorder of peritoneum, unspecified; E66.9 Obesity, unspecified; Z79.899 Other long term (current) drug therapy; Z88.8 Allergy status to other drugs, medicaments and biological substances; G40.909 Epilepsy, unspecified, not intractable, without status epilepticus; K21.9 Gastro-esophageal reflux disease without esophagitis

== ENCOUNTER 2024-12-15 12:05 | Emergency (ER) | payer OTHER, MEDICAID ==
[~2024-12-15] VITALS: Ht 167.6 cm; Wt 145.4 kg
[~2024-12-15 12:05] MED LIST changes: +AMMO12CR4 TOP; +CARB-115 PO; -CARB200T98 PO; +FAMO1TAB11 PO; +FERR325T19 PO; -FLOM0.4C39 OR; -FLOM0.4C39 PO; +FOLI1TAB11 PO; +FURO40TA2 PO; +LEVO50TA5 PO; -LR 1,000 ML IV SCH; +METH-855 PO; +MILKSUS3 PO; +NAPR-885 PO; +OFAT20PE SQ; +OMEP40CA5 PO; +OXYB5TAB14 PO; +POTA-298 PO; -POTA1TAB14 PO; +TAMS-18 OR; +TAMS-18 PO; +TIZA1TAB12 PO; +TIZA2TA PO; +ZOLO100T PO
[2024-12-15 12:08] VITALS: TEMP 96.2
[2024-12-15] MEDS ORDERED: SODIUM CHLORIDE 0.9% INJ 10 ML SYR IV PRN (14:50)
[2024-12-15] MEDS ORDERED: HEPARIN LOCK FLUSH 100 UNITS/ML 3 ML SYRINGE IV PRN (14:50)
[2024-12-15] MEDS ORDERED: HOME MED LIST COMPLETE! XX SCH (15:00)
[2024-12-15 15:11] LABS: BASO # 0.1 10^3/uL (0.0-0.2); BASO % 0.7 % (0.0-1.0); EOS # 0.2 10^3/uL (0.0-0.5); EOS % 3.2 % (0.0-3.0); LYMPH # 1.1 10^3/uL (1.5-5.0); LYMPH % 14.0 % (24.0-44.0); MONO # 0.7 10^3/uL (0.0-0.8); MONO % 9.6 % (2.0-8.0); NEUTROPHILS # 5.4 10^3/uL (1.5-8.5); NEUTROPHILS % 71.6 % (36.0-66.0); PLATELET COUNT, AUTOMATED 265 10^3/uL (150-450)
[2024-12-15 15:40] LABS: CALCIUM LEVEL 8.1 MG/DL (8.5-10.1); CARBON DIOXIDE LEVEL 28 MMOL/L (20-31); CHLORIDE LEVEL 106 MMOL/L (98-107); CREATININE FOR GFR 0.73 MG/DL (0.70-1.30); GLOMERULAR FILTRATION RATE > 90.0 (>60); POTASSIUM SERUM 3.8 MMOL/L (3.5-5.1); SODIUM LEVEL 145 MMOL/L (136-145)
[2024-12-15] MEDS: CIPROFLOXACIN 400 MG in IV 1 EA IV ONE (16:05)
[2024-12-15] MEDS: LIDOCAINE 1% MDV 20 ML VIAL SC SCH (16:05)
[2024-12-15] MEDS: ISOVUE-300 61% 100 ML VIAL IV SCH (16:05)
[2024-12-15] MEDS: SODIUM CHLORIDE 0.9% 1000 ML XX SCH (16:05)
[2024-12-15 17:15] VITALS: BP 139/93; O2SAT 96
[2024-12-15] MEDS: HEPARIN LOCK FLUSH 100 UNITS/ML 3 ML SYRINGE IV SCH (18:25)
[2024-12-15] MEDS: SODIUM CHLORIDE 0.9% INJ 10 ML SYR IV SCH (18:25)
== END 2024-12-15 18:28 | disposition home or self-care (01) ==
LOC: M ED 12:05
DX: T83.092A Other mechanical complication of nephrostomy catheter, initial encounter (principal); F17.200 Nicotine dependence, unspecified, uncomplicated; G40.909 Epilepsy, unspecified, not intractable, without status epilepticus; Z87.442 Personal history of urinary calculi; Z86.718 Personal history of other venous thrombosis and embolism; Z88.8 Allergy status to other drugs, medicaments and biological substances; Z79.01 Long term (current) use of anticoagulants; Z79.1 Long term (current) use of non-steroidal anti-inflammatories (NSAID); Z79.899 Other long term (current) drug therapy
CPT/HCPCS: 50387; 80048; 85025; 96374; 96375; 99283; J0744; J1642; Q9967

== ENCOUNTER → 2024-12-27 | Outpatient (CLI) | payer OTHER, MEDICAID ==
[2024-12-27 13:35] VITALS: BP 133/78; TEMP 97.3; O2SAT 92
[2024-12-27] MEDS: CEPHALEXIN 500 MG CAP PO ONE (14:07)
[2024-12-27] MEDS: LIDOCAINE 1% MDV 20 ML VIAL SC ONE (14:44)
[2024-12-27] MEDS: ISOVUE-300 61% 100 ML VIAL IV ONE (14:44)
== END ==
LOC: M IRPRO 12:45
PROVIDERS: ATTEND Radiology Diagnostic Radiology
DX: N13.9 Obstructive and reflux uropathy, unspecified (principal); T83.092A Other mechanical complication of nephrostomy catheter, initial encounter
CPT/HCPCS: 50389; Q9967

== ENCOUNTER 2025-02-21 06:21 | Day surgery (SDC) | payer OTHER, MEDICAID ==
[~2025-02-21] VITALS: Ht 167.6 cm; Wt 136.8 kg
[2025-02-21] MEDS: LR 1,000 ML IV SCH (06:15)
[~2025-02-21 06:21] MED LIST changes: +AMLO1TAB25 PO
[2025-02-21] MEDS ORDERED: LIDOCAINE 2% 100 MG/5 ML SDV (FOR ANES.) As Ordered ONE (07:24)
[2025-02-21] MEDS ORDERED: MIDAZOLAM INJ 2 MG/2 ML VIAL As Ordered ONE (07:24)
[2025-02-21] MEDS ORDERED: ONDANSETRON 4MG 2ML VIAL As Ordered ONE (07:24)
[2025-02-21] MEDS ORDERED: dexAMETHasone 4 MG/ML 1 ML VIAL As Ordered ONE (07:24)
[2025-02-21] MEDS ORDERED: ROCURONIUM BROMIDE 50MG/5ML VIAL As Ordered ONE (07:35)
[2025-02-21] MEDS ORDERED: dexmedeTOMIDine (4 MCG/ML) 200 MCG/50 ML BTL As Ordered ONE (07:39)
[2025-02-21] MEDS ORDERED: PHENYLephrine 500MCG 5ML (100MCG/ML) SYRINGE As Ordered ONE (08:20)
[2025-02-21] MEDS ORDERED: ACETAMINOPHEN 1000MG/100ML IV BAG As Ordered ONE (08:42)
[2025-02-21] MEDS: ISOVUE-300 61% 100 ML VIAL As Ordered ONE (08:43)
[2025-02-21] MEDS ORDERED: SUGAMMADEX SODIUM 500 MG/5 ML VIAL As Ordered ONE (09:08)
[2025-02-21] MEDS ORDERED: HYDROMORPHONE HCL 0.5 MG/0.5 ML SYRINGE IV PRN (10:15)
[2025-02-21] MEDS ORDERED: LR 1,000 ML IV SCH (10:15)
[2025-02-21] MEDS ORDERED: ONDANSETRON 4MG 2ML VIAL IV PRN (10:15)
[2025-02-21] MEDS ORDERED: TAMS-18 PO (10:48)
[2025-02-21 12:54] VITALS: BP 138/79; TEMP 97.4; O2SAT 96
== END 2025-02-21 13:23 | disposition home or self-care (01) ==
LOC: M SDC 06:21
PROVIDERS: ATTEND Urology
DX: N13.2 Hydronephrosis with renal and ureteral calculous obstruction (principal); E03.9 Hypothyroidism, unspecified; G35 Multiple sclerosis; Z79.899 Other long term (current) drug therapy; Z79.890 Hormone replacement therapy; Z90.49 Acquired absence of other specified parts of digestive tract; Z86.718 Personal history of other venous thrombosis and embolism; K21.9 Gastro-esophageal reflux disease without esophagitis; Z99.3 Dependence on wheelchair; Z88.8 Allergy status to other drugs, medicaments and biological substances
CPT/HCPCS: 52356; 71045; 76000; 82365; 93005; C1769; C1894; C2617; J0131; J0690; J1100; J2250; J2371; J2405; J3010; Q9967